=== PATIENT | female | born 1935 | race Asian ===

== ENCOUNTER 2016-08-20 11:58 | Emergency (ER) | payer MEDICARE ==
[~2016-08-20] VITALS: Wt 65.0 kg
[2016-08-20] MEDS ORDERED: ACETAMINOPHEN 500 MG TAB PO STA (15:06)
--- NOTE | 2016-08-20 16:07 | RADRPT ---
PROCEDURE: XR Chest 1 view. CLINICAL INDICATION: Cough TECHNIQUE: PA views of the chest were obtained. COMPARISON: None. FINDINGS: The heart is large. Calcified atherosclerosis is noted in the aorta. Scattered subsegmental atelect asis is noted in the bilateral lower lobes. No consolidations are identified. No pneumothorax is se en. Osseous structures are intact. IMPRESSION: Cardiomegaly with calcified atherosclerosis in the aorta. Scattered subsegmental atelectasis in the bilateral lower lobes. RPTAT: AA .Ant Villafuerte MD, MD Date Time Electronically viewed and signed by .Ant Villafuerte MD, on 08/20/2016 16:07 .P/
[2016-08-20] MEDS ORDERED: OSLT75C PO (16:12)
[2016-08-20] MEDS ORDERED: ACET500C5 PO (16:12)
--- NOTE | 2016-08-20 16:15 | ERD ---
ER Documentation Chief Complaint Date/Time DATE: 08/20/16 TIME: 16:14 Chief Complaint COUGH X 2 DAYS HPI This 80-year-old female presents with cough since yesterday. She has body aches and low-grade fever triage as well. She denies hemoptysis, mucus, vomiting, abdominal pain. She denies headache or chest pain. ROS All systems reviewed and are negative except as per history of present illness. Medications Home Meds Active Scripts Oseltamivir Phosphate* (Tamiflu*) 75 Mg Capsule, 75 MG PO BID for 5 Days, CAP Prov:MARY SHEARER MD 08/20/16 Acetaminophen* (Tylophen*) 500 Mg Capsule, 1 CAP PO Q6H Y for PAIN AND OR ELEVATED TEMP, #15 CAP Prov:MARY SHEARER MD 08/20/16 PMhx/Soc Medical and Surgical Hx: pt denies Medical Hx, pt denies Surgical Hx Hx Alcohol Use: No Hx Substance Use: No Hx Tobacco Use: No Smoking Status: Never smoker Physical Exam Vitals Vital Signs Date Time Temp Pulse Resp B/P Pulse Ox O2 Delivery O2 Flow Rate FiO2 08/20/16 12:10 100.1 79 18 169/72 99 Physical Exam Const: [] Alert, not ill-appearing, speak complete sentences per Head: Atraumatic Eyes: Normal Conjunctiva ENT: Normal External Ears, Nose and Mouth. TMs and oropharynx normal Neck: Full range of motion..~ No meningismus. Resp: Clear to auscultation bilaterally. Noticeable dry cough. Cardio: Regular rate and rhythm, no murmurs Abd: Soft, non tender, non distended. Normal bowel sounds Skin: No petechiae or rashes Back: No midline or flank tenderness Ext: No cyanosis, or edema Neur: Awake and alert Psych: Normal Mood and Affect Results 24 hrs Current Medications Medications (Trade) Dose Ordered Sig/Mayte Route PRN Reason Start Time Stop Time Status Last Admin Dose Admin Acetaminophen (Tylenol Tab) 500 mg ONCE STAT PO 08/20/16 15:06 08/20/16 15:07 DC 08/20/16 15:13 Procedures/MDM Patient was given Tylenol by mouth. Chest X-ray 1V Interpreted by me: Soft Tissue: No acute abnormalities Bones: No acute abnormalities Mediastinum/Cardiac Silhouette/Lungs: [No acute abnormalities]. Impression- normal 1 view chest x-ray Patient has signs or symptoms of acute URI and low-grade fever for 1 day. She will be treated empirically for influenza. There is no signs of pneumonia, respiratory distress, or sepsis currently. She will be treated with Tamiflu and Tylenol and further observation. Patient should return for shortness of breath, worsening fevers, difficulty breathing, vomiting, new worsening symptoms or primary care doctor this week Departure Diagnosis: Primary Impression: Cough Additional Impression: Hypertension Hypertension type: essential hypertension Qualified Code: I10 - Essential hypertension Condition: Stable Patient Instructions: Uri, Viral, No Abx (Adult) Additional Instructions: X-ray read as normal. We will treat for possible influenza. Recheck for new or worsening symptoms or with primary care doctor for further evaluation and recheck blood pressure MARY SHEARER MD Aug 20, 2016 16:15
[2016-08-20 16:28] VITALS: BP 181/88; PULSE 71; RESP 17; TEMP 98.3
== END 2016-08-20 16:31 | disposition home or self-care (01) ==
LOC: FTE 11:58
DX: R05 Cough (principal); I10 Essential (primary) hypertension
CPT/HCPCS: 71010

== ENCOUNTER 2016-11-09 10:59 | Inpatient (IN) | payer MEDICARE, OTHER ==
[~2016-11-09] VITALS: Ht 152.4 cm; Wt 54.2 kg
[~2016-11-09 10:59] MED LIST: ACET500C5 PO; OSLT75C PO
[2016-11-09 12:17] LABS: ADD SCAN DIFF NO
[2016-11-09 12:22] LABS: BASOPHILS % 0.3 % (0.0-2.0); EOSINOPHILS # 0.1 10^3/ul (0.0-0.5); EOSINOPHILS % 1.5 % (0.0-7.0); HEMATOCRIT 27.6 % (37.0-47.0); LYMPHOCYTES # 3.1 10^3/ul (0.8-2.9); LYMPHOCYTES % 36.1 % (15.0-51.0); MEAN CORPUSCULAR HEMOGLOBIN 26.5 pg (29.0-33.0); MEAN CORPUSCULAR HGB CONC 32.6 g/dl (32.0-37.0); MEAN CORPUSCULAR VOLUME 81.4 fl (82.0-101.0); MEAN PLATELET VOLUME 9.4 fl (7.4-10.4); MONOCYTE # 0.7 10^3/ul (0.3-0.9); MONOCYTES % 8.6 % (0.0-11.0); NEUTROPHIL # 4.6 10^3/ul (1.6-7.5); NEUTROPHILS % 53.3 % (39.0-77.0); PLATELET COUNT 317 10^3/UL (140-415); RED BLOOD COUNT 3.39 10^6/ul (4.20-5.40); RED CELL DISTRIBUTION WIDTH 15.9 % (11.5-14.5); WHITE BLOOD COUNT 8.6 10^3/ul (4.8-10.8)
--- NOTE | 2016-11-09 12:33 | RADRPT ---
AMENDMENT: 11/09/2016 12:48:24 PM Harley Echeverria M.D A call report was made to Dr. STARK at 11/09/2016 12:48:20 PM. PROCEDURE: CT Brain without contrast. CLINICAL INDICATION: Neurologic deficit TECHNIQUE: A CT of the brain was performed on multidetector high-resolution CT scanner utilizing a xial sections from the skull base through the vertex without contrast. One or more of the following dose reduction techniques were used: Automated exposure control, Adjustment of the mA and/or kV acc ording to patient size, and/or use of iterative reconstruction technique. DOSE: CTDI = 45 mGy and the DLP = 720 mGy-cm. COMPARISON: None available FINDINGS: No acute intracranial hemorrhage, significant mass effect or midline shift. Patchy hypoattenuation o f the cerebral white matter is compatible with mild chronic microvascular ischemic changes. Vascular calcifications. Prominence of the cortical sulci and ventricles are related to mild cerebral volum e loss. No significant opacification of the visualized paranasal sinuses or mastoids. IMPRESSION: No acute intracranial findings. Mild chronic microvascular disease and intracranial atherosclerosis. RPTAT: AA .Harley Echeverria MD, MD Date Time Electronically viewed and signed by .Harley Echeverria MD, MD on 11/09/2016 12:48 .T/
[2016-11-09 12:41] LABS: INR 0.98
[2016-11-09 12:42] LABS: PARTIAL THROMBOPLASTIN TIME 25.5 Sec (25.0-35.0)
[2016-11-09 12:44] LABS: ALANINE AMINOTRANSFERASE 33 IU/L (13-69); ALBUMIN/GLOBULIN RATIO 0.95; ALKALINE PHOSPHATASE 36 IU/L (42-121); ANION GAP 21 (8-16); ASPARTATE AMINO TRANSFERASE 25 IU/L (15-46); BILIRUBIN,INDIRECT 0.6 mg/dl (0-1.1); BILIRUBIN,TOTAL 0.6 mg/dl (0.2-1.3); BLOOD UREA NITROGEN 29 mg/dl (7-20); CALCIUM 9.2 mg/dl (8.4-10.2); CARBON DIOXIDE 24 mmol/L (21-31); CHLORIDE 102 mmol/L (97-110); GLUCOSE 130 mg/dl (70-220); POTASSIUM 4.7 mmol/L (3.5-5.1); SODIUM 142 mmol/L (135-144); TOTAL PROTEIN 8.2 g/dl (6.1-8.1)
--- NOTE | 2016-11-09 12:52 | RADRPT ---
PROCEDURE: XR Chest. CLINICAL INDICATION: Possible sepsis. TECHNIQUE: Single frontal view of the chest was obtained. COMPARISON: Chest x-ray 08/20/2016. FINDINGS: The soft tissues are normal. There are degenerative osteophytes in the thoracic spine. The heart i s enlarged. The cardiomediastinal silhouette and hilar structures are normal. The pulmonary vascula ture is normal. There are vascular calcifications in the thoracic aorta. There is a suboptimal and spray upper with increased density in the bases of the lungs suspicious for compressive atelectasis. The costophrenic angles are normal. IMPRESSION: 1. Cardiomegaly with atherosclerosis and ectasia of the left-sided thoracic aorta. 2. Suboptimal inspiration with compressive atelectasis in the bases of the lungs. 3. No significant changes noted as compared to 08/20/2016. RPTAT:AAJJ Physician Tamara Date Time Electronically viewed and signed by Physician Tamara on 11/09/2016 12:51 JAISON/
[2016-11-09 12:56] LABS: TROPONIN-I < 0.012 ng/ml (0.00-0.12)
[2016-11-09] MEDS ORDERED: MEGE800O PO (12:58)
[2016-11-09] MEDS ORDERED: CIPR500T4 PO (12:58)
[2016-11-09] MEDS ORDERED: CLON-379 PO (12:59)
[2016-11-09] MEDS ORDERED: ZOLP5TAB PO (12:59)
[2016-11-09] MEDS ORDERED: SITA1TAB5 PO (13:00)
[2016-11-09 13:02] LABS: ADD UMIC YES; URINE BILIRUBIN (Dip) NEGATIVE (NEGATIVE); URINE BLOOD (Dip) NEGATIVE (NEGATIVE); URINE COLOR AMBER (YELLOW); URINE KETONES (Dip) TRACE (NEGATIVE); URINE LEUKOCYTE ESTERASE (Dip) NEGATIVE (NEGATIVE); URINE NITRITE (Dip) POSITIVE (NEGATIVE); URINE TOTAL PROTEIN (Dip) 4+ (NEGATIVE); URINE UROBILINOGEN (Dip) 4.0 E.U./dL (0.1-1.0)
[2016-11-09] MEDS ORDERED: CLOP75TA27 PO (13:08)
[2016-11-09] MEDS ORDERED: ASPI81TA3 PO (13:08)
[2016-11-09] MEDS ORDERED: CETI10CA PO (13:09)
[2016-11-09] MEDS ORDERED: PHEN-538 PO (13:09)
[2016-11-09] MEDS ORDERED: ROPI0.25 PO (13:09)
[2016-11-09] MEDS ORDERED: OLOP2.5D LEFT EYE (13:10)
[2016-11-09] MEDS ORDERED: PANTOPRAZOLE 40 MG INJ IV ONE (14:00)
--- NOTE | 2016-11-09 14:13 | ERA ---
ER Documentation Chief Complaint Date/Time DATE: 11/09/16 TIME: 1155 Chief Complaint HEADACHE AND DIZZINESS FOR THE PAST 2 DAYS.UNABLE TO WALK, NO NEUO DEF HPI 81-year-old female presents the emergency department complaining of weakness and dizziness. Patient speaks mostly tight. Her family is providing most of the history via translation. Over the last 2 days, patient has been having increasing generalized weakness and a nonspecific headache. The headache is not acute in onset or thunderclap in nature. It is associated with a generalized but not focal weakness. The generalized weakness has become so bad that the patient cannot walk. Patient's been unable to care for herself at home at this time with a significant weakness. ROS All systems reviewed and are negative except as per history of present illness. Medications Home Meds Reported Medications Olopatadine* (Pataday*) 0.2% - 2.5 Ml Drops, 1 DROP LEFT EYE DAILY, EA 11/09/16 Phenazopyridine Hcl* (Pyridium*) 200 Mg Tab, 200 MG PO TID, TAB 11/09/16 Ropinirole Hcl* (Ropinirole Hcl*) 0.25 Mg Tablet, 0.25 MG PO HS, TAB 11/09/16 Cetirizine Hcl* (Zyrtec*) 10 Mg Capsule, 10 MG PO DAILY, TAB 11/09/16 Clopidogrel Bisulfate (Clopidogrel) 75 Mg Tablet, 75 MG PO DAILY, #30 TAB 11/09/16 Aspirin* (Aspirin* Chew) 81 Mg Tab.chew, 81 MG PO DAILY, TAB.CHEW 11/09/16 Sitagliptin Phos/Metformin HCl (Janumet 50-1,000 mg Tablet) 1 Each Tablet, 1 EACH PO BID, TAB 11/09/16 Clonidine Hcl* (Clonidine Hcl*) 0.1 Mg Tab, 0.1 MG PO Q6 Y for ELEVATED BLOOD PRESSURE, TAB 11/09/16 Zolpidem Tartrate* (Ambien*) 5 Mg Tablet, 5 MG PO QHS Y for INSOMNIA, #30 TAB 11/09/16 Ciprofloxacin Hcl* (Ciprofloxacin Hcl*) 500 Mg Tablet, 500 MG PO BID, #14 TAB 11/09/16 Megestrol Acetate* (Megestrol Acetate*) 800 Mg/20 Ml Oral.susp, 800 MG PO DAILY , ML 11/09/16 Discontinued Scripts Oseltamivir Phosphate* (Tamiflu*) 75 Mg Capsule, 75 MG PO BID for 5 Days, CAP Prov:MARY SHEARER MD 08/20/16 Acetaminophen* (Tylophen*) 500 Mg Capsule, 1 CAP PO Q6H Y for PAIN AND OR ELEVATED TEMP, #15 CAP Prov:MARY SHEARER MD 08/20/16 Allergies Allergies: Coded Allergies: No Known Allergy (Unverified , 11/09/16) PMhx/Soc History of Surgery: No Anesthesia Reaction: No Hx Neurological Disorder: No Hx Respiratory Disorders: No Hx Cardiac Disorders: Yes (HTN , HIGH CHOLESTEROL , HEART MURMUR ) Hx Psychiatric Problems: No Hx Miscellaneous Medical Probl: Yes (DM ) Hx Alcohol Use: No Hx Substance Use: No Hx Tobacco Use: No Smoking Status: Never smoker FmHx Noncontributory for chief complaint Physical Exam Vitals Vital Signs Date Time Temp Pulse Resp B/P Pulse Ox O2 Delivery O2 Flow Rate FiO2 11/09/16 13:40 98.1 56 18 139/56 100 Nasal Cannula 2.0 11/09/16 12:14 64 18 109/50 99 Nasal Cannula 2.0 11/09/16 12:08 Nasal Cannula 2 11/09/16 11:01 98.5 69 20 126/56 98 Physical Exam GENERAL: Patient is a frail elderly female who appears weak but in no acute distress HEENT: Pupils equal, round, and reactive to light. EOMI. There is no scleral icterus. NECK: C-spine is soft and supple, there is no meningismus. There is no cervical lymphadenopathy. LUNGS: Clear to auscultation bilaterally. There are no rales, wheezes or rhonchi. HEART: Regular rate and rhythm, no murmurs, clicks, rubs or gallops. ABDOMEN: Soft, non-tender, non-distended. There are bowel sounds in all four quadrants. No rebound or guarding. EXTREMITIES: There is no peripheral cyanosis or edema. No focal swelling or erythema. NEURO: The patient moves all four extremities with 5/5 strength. Cranial nerves II - XII are intact. Normal gait. Alert and oriented SKIN: There is no apparent rash or petechiae. Skin appears pale HEME/LYMPHATIC: There is no evidence of excessive bruising or lymphedema. PSYCHIATRIC: The patient does not appear anxious or depressed. Result Diagram: 5/27/17 1200 11/09/16 1200 Results 24 hrs Laboratory Tests Test 11/09/16 12:00 11/09/16 12:03 11/09/16 12:40 White Blood Count 8.610^3/ul Red Blood Count 3.3910^6/ul Hemoglobin 9.0g/dl Hematocrit 27.6% Mean Corpuscular Volume 81.4fl Mean Corpuscular Hemoglobin 26.5pg Mean Corpuscular Hemoglobin Concent 32.6g/dl Red Cell Distribution Width 15.9% Platelet Count 91425^3/UL Mean Platelet Volume 9.4fl Neutrophils % 53.3% Lymphocytes % 36.1% Monocytes % 8.6% Eosinophils % 1.5% Basophils % 0.3% Nucleated Red Blood Cells % 0.0/100WBC Neutrophils # 4.610^3/ul Lymphocytes # 3.110^3/ul Monocytes # 0.710^3/ul Eosinophils # 0.110^3/ul Basophils # 0.010^3/ul Nucleated Red Blood Cells # 0.010^3/ul Prothrombin Time 13.0Sec Prothrombin Time Ratio 1.0 INR International Normalized Ratio 0.98 Activated Partial Thromboplast Time 25.5Sec Sodium Level 142mmol/L Potassium Level 4.7mmol/L Chloride Level 102mmol/L Carbon Dioxide Level 24mmol/L Anion Gap 21 Blood Urea Nitrogen 29mg/dl Creatinine 1.60mg/dl Glucose Level 130mg/dl Lactic Acid Level 3.0mmol/L Calcium Level 9.2mg/dl Total Bilirubin 0.6mg/dl Direct Bilirubin 0.00mg/dl Indirect Bilirubin 0.6mg/dl Aspartate Amino Transf (AST/SGOT) 25IU/L Alanine Aminotransferase (ALT/SGPT) 33IU/L Alkaline Phosphatase 36IU/L Troponin I < 0.012ng/ml Total Protein 8.2g/dl Albumin 4.0g/dl Globulin 4.20g/dl Albumin/Globulin Ratio 0.95 Bedside Glucose 140mg/dL Urine Color CLAUDIA Urine Clarity CLEAR Urine pH 7.0 Urine Specific [place] 1.010 Urine Ketones TRACE Urine Nitrite POSITIVE Urine Bilirubin NEGATIVE Urine Urobilinogen 4.0 E.U./dL Urine Leukocyte Esterase NEGATIVE Urine Microscopic RBC 2-5/HPF Urine Microscopic WBC 2-5/HPF Urine Epithelial Cells FEW Urine Hemoglobin NEGATIVE Urine Glucose 0.1%% Urine Total Protein 4+ Current Medications Medications (Trade) Dose Ordered Sig/Mayte Route PRN Reason Start Time Stop Time Status Last Admin Dose Admin Pantoprazole (Protonix Iv) 40 mg ONCE ONCE IV 11/09/16 14:00 11/09/16 14:04 DC 11/09/16 13:46 Procedures/MDM Patient was taken to a room, seen and evaluated. Comfort measures were initiated. Diagnostic tests were ordered and reviewed. 3 LEAD RHYTHM STRIP: Normal sinus rhythm without ectopy EK lead EKG reviewed by myself: Normal Sinus Rhythm Right bundle branch block No ST elevation, depression, or T wave inversion Impression: Nonspecific EKG RADIOLOGY: reviewed with the radiologist CONSULTATION: hospitalist was notified for admission REEVALUATION: Patient is remained hemodynamically stable MEDICAL DECISION MAKIN-year-old female presents with generalized weakness. Differential diagnosis entertained was broad and potential high acuity. Patient's evaluation demonstrates evidence of a significant anemia of uncertain etiology. She is on aspirin and Plavix and I have a high concern of possible occult GI bleed. I have covered her with Protonix. Patient does not require emergent transfusion at this time but will require admission for further observation and consideration of endoscopy. Stool for blood is been ordered and is pending. Patient's weakness may also be related to medications that she is on a number of medications that can cause weakness. At this time, patient shows no evidence of stroke either on CT scan or clinical examination. Patient' s elevated lactate has been noted although my suspicion is that this is likely from the blood loss and anemia. I have no obvious source of infection at this time and as the patient is afebrile, I doubt very much she is septic. I have sent cultures and these are pending at this time as well. Patient will be admitted for further observation management and care. Departure Diagnosis: Primary Impression: Anemia Condition: MARII Giraldo November 09, 2016 14:13
[2016-11-09 15:38] LABS: BARBITURATES Negative (NEGATIVE); BENZODIAZEPINES Negative (NEGATIVE); CANNABINOIDS Negative (NEGATIVE); COCAINE Negative (NEGATIVE); OPIATES Negative (NEGATIVE)
[2016-11-09 16:04] VITALS: TEMP 98.2
[2016-11-09 16:30] VITALS: BP 198/84; RESP 18
[2016-11-09] MEDS ORDERED: ONDANSETRON 4 MG INJ IV PRN (17:00)
[2016-11-09] MEDS ORDERED: NACL 0.9% 3 ML SYG IV SCH (17:00)
[2016-11-09] MEDS ORDERED: ALBUTEROL/IPRATROPIUM (NEB) 3 ML AMP HHN PRN (17:00)
[2016-11-09] MEDS ORDERED: MAGNESIUM HYDROXIDE 30ML CUP PO PRN (17:00)
[2016-11-09] MEDS ORDERED: GLUCOSE GEL 15 GRAM TUBE BUCCAL PRN (17:00)
[2016-11-09] MEDS ORDERED: LORAZEPAM 2 MG INJ IV PRN (17:00)
[2016-11-09] MEDS: INSULIN ASPART [NOVOLOG] 3 ML PEN SC SCH ×2 (17:00→20:53)
[2016-11-09] MEDS ORDERED: NA PHOSPHATE/BIPHOS 133 ML ENEMA PR PRN (17:00)
[2016-11-09] MEDS ORDERED: DEXTROSE 50% 50 ML SYRINGE IV PRN ×2 (17:00)
[2016-11-09] MEDS ORDERED: GLUCOSE GEL 15 GRAM TUBE PO PRN ×2 (17:00)
[2016-11-09] MEDS ORDERED: GLUCAGON 1 MG INJ IM PRN (17:00)
[2016-11-09] MEDS ORDERED: NITROGLYCERIN (SL) 0.4 MG TAB SL PRN (17:00)
[2016-11-09] MEDS ORDERED: morphine 2 MG INJ IV PRN (17:00)
[2016-11-09 17:58] VITALS: BP 169/71; PULSE 55; RESP 16
[2016-11-09 18:13] LABS: INR 1.02; PROTIME 13.4 Sec (12.2-14.2)
[2016-11-09] MEDS: SOD CHLORIDE 0.9% 1,000 ML IV SCH (18:15)
[2016-11-09 18:18] LABS: PARTIAL THROMBOPLASTIN TIME 27.5 Sec (25.0-35.0)
[2016-11-09] MEDS: hydrALAzine 20 MG INJ IV PRN (18:23)
--- NOTE | 2016-11-09 19:08 | HP ---
DATE OF ADMISSION: 11/09/2016 CHIEF COMPLAINT: Headache, dizziness, weakness x2 days. HISTORY OF PRESENT ILLNESS: An 81-year-old female with past medical history based on records of hyp ertension, high cholesterol, heart murmur, possible stent placement, type 2 diabetes who has been cervantes ving headache and dizziness for the past 2 days. She also had decreased ambulation as well. The pa colette is Arabic speaking. Most of the information was obtained from the ER documentation, as the uma arreguin is presently not able to provide a full HPI. She also had a nonspecific headache over the last 2 days. A full review of systems could not be obtained at this time. When the patient came in today , she had an elevated lactic acid of 3.0 and her creatinine was 1.6, although we do not know her bas krystina. Also the patient had a hemoglobin of 9.1, although no signs of any upper or lower GI bleedin g. PAST MEDICAL HISTORY: As stated above. ALLERGIES: NO KNOWN DRUG ALLERGIES. MEDICATIONS AT HOME: 1. Zyrtec 10 mg daily. 2. Ciprofloxacin 500 mg p.o. b.i.d. 4. Megace 800 mg daily. 4. Plavix 75 mg daily. 5. Clonidine 0.1 mg p.o. q.6h p.r.n. 6. Aspirin 81 mg daily. 7. Ropinirole 0.25 mg at bedtime. 8. Ambien 5 mg p.o. at bedtime p.r.n. 9. Pataday 1 drop left eye daily. 10. Janumet b.i.d. 11. Pyridium 200 mg t.i.d. SOCIAL HISTORY: Negative for smoking, drinking, or IV drug abuse. FAMILY HISTORY: Noncontributory today. PAST SURGICAL HISTORY: Unknown. The patient may have had a "stent" placed but it is unclear what k ind of stent the patient has had, whether that is a cardiac stent or other kind of vascular stent. We need to get more information on that. PHYSICAL EXAMINATION: VITAL SIGNS: T-max 98.5, pulse of 56 to 69, respirations 18 to 20, blood pressure 109 to 139 systol ic over 50 to 56 diastolic, saturating at 100% on 2 liters nasal cannula. GENERAL: The patient is lying in bed, somewhat frail, but otherwise in no acute distress. HEENT: Pupils equal, round, react to light. Extraocular muscles intact. NECK: Supple, no thyromegaly. LUNGS: Clear to auscultation bilaterally. CARDIOVASCULAR: S1, S2 heard. No rubs or gallops. ABDOMEN: Soft, nontender, nondistended. Normal bowel sounds. No rebound or guarding. MUSCULOSKELETAL: No lower extremity edema bilaterally. NEUROLOGIC: No focal deficits. LABORATORIES: WBC 8.6, hemoglobin 9.0, hematocrit 27.6, platelets 317. Sodium is 142, potassium 4. 7, chloride 102, CO2 24, BUN 29, creatinine 1.6, glucose 130. Lactic acid 3.0. LFTs are essentiall y normal. Troponin negative x1. Coags are normal. The patient had a head CT, shows no acute intra cranial findings. There was a chest x-ray performed, shows cardiomegaly with atherosclerosis and ec triston of the left side of the thoracic aorta. No significant changes compared to 08/20/2016. Subop timal inspiration with compressive atelectasis at the base of the lungs. ASSESSMENT AND PLAN: An 81-year-old female with headache, weakness and dizziness for 2 days with sig ns of mild anemia, lactic acidosis and renal failure. 1. Lactic acidosis. Again, lactic acid is 3. The patient has unclear source of possible infection . Possible source could be the UTIs. Her nitrites are positive. Her leukocyte esterase was negati ve. In any event, we will put her on IV fluids, check TSH, A1c, lipid panel. Tylenol p.r.n. pain a nd fevers. We will put her on antibiotics for now and follow up final culture results. Given the l actic acidosis from the lactic acid, IV fluids and check blood cultures as well. Again, no leukocyt osis at this time. 2. Mild anemia. Will check a stool occult test. Hemoglobin was 9.1. Will hold her aspirin and Pl avix for now, although there are no signs of any upper or lower GI bleeding at this time. 3. Renal insufficiency. We will put her on IV fluids. Monitor ins and outs and BUN and creatinine levels daily and get a renal consult as well. 4. History of hypertension. Again, he is on hydralazine p.r.n. Monitor for now. 5. High cholesterol. Check a lipid panel. Continue to monitor for now. 6. History of heart murmur get a 2D echocardiogram as well. 7. Type 2 diabetes. Put on sliding scale insulin. Check A1c. Also get PT and OT consult and spee ch therapy consult as well. 8. Gastrointestinal prophylaxis. PPI. 9. Deep venous thrombosis prophylaxis, sequential compression devices. Dictated By: VASU GARDUNO/KIRSTEN Conf#: [id number] DID#: [id number]
[2016-11-09 19:37] VITALS: BP 164/70; PULSE 64
[2016-11-09] MEDS: CEFTRIAXONE 2 GM/50 ML (PMX) 50 ML IVPB SCH (19:38)
[2016-11-09] MEDS: ACETAMINOPHEN 325 MG TAB PO PRN (19:41)
[2016-11-09 20:06] VITALS: BP 159/73; RESP 17
[2016-11-09] MEDS: OLOPATADINE 0.1% 5 ML OPH LEFT EYE SCH (20:55)
--- NOTE | 2016-11-09 23:20 | CONS ---
Date/Time of Note Date/Time of Note DATE: 11/09/16 TIME: 23:18 Assessment/Plan Assessment/Plan Chief Complaint/Hosp Course [id number] renal A/P EMPERATRIZ DM HTN UND CKD ANEMIA PLAN LYTES IV FLUID KID Problems: Consultation Date/Type/Reason Admit Date/Time November 09, 2016 at 15:53 Initial Consult Date Type of Consultation: renal 24 HR Interval Summary Constitutional: No chills, No diaphoresis Exam/Review of Systems Vital Signs Vitals Vital Signs Date Time Temp Pulse Resp B/P Pulse Ox O2 Delivery O2 Flow Rate FiO2 11/09/16 20:06 98.3 61 17 159/73 97 11/09/16 20:05 Nasal Cannula 2.0 11/09/16 20:03 21 Exam Neck: supple Respiratory: clear to auscultation Cardiovascular: regular rate and rhythm Gastrointestinal: bowel sounds, soft Musculoskeletal: nl extremities to inspection Extremities: normal pulses, No edema Neurological: REGULATORY ATTORNEY II-XII intact, nl mental status, nl speech Skin: nl turgor Results Result Diagram: 11/09/16 1200 11/09/16 1200 Results 24 hrs Laboratory Tests Test 11/09/16 12:00 11/09/16 12:03 11/09/16 12:40 11/09/16 12:41 White Blood Count 8.6 Red Blood Count 3.39 L Hemoglobin 9.0 L Hematocrit 27.6 L Mean Corpuscular Volume 81.4 L Mean Corpuscular Hemoglobin 26.5 L Mean Corpuscular Hemoglobin Concent 32.6 Red Cell Distribution Width 15.9 H Platelet Count 317 Mean Platelet Volume 9.4 Neutrophils % 53.3 Lymphocytes % 36.1 Monocytes % 8.6 Eosinophils % 1.5 Basophils % 0.3 Nucleated Red Blood Cells % 0.0 Neutrophils # 4.6 Lymphocytes # 3.1 H Monocytes # 0.7 Eosinophils # 0.1 Basophils # 0.0 Nucleated Red Blood Cells # 0.0 Prothrombin Time 13.0 Prothrombin Time Ratio 1.0 INR International Normalized Ratio 0.98 Activated Partial Thromboplast Time 25.5 Sodium Level 142 Potassium Level 4.7 Chloride Level 102 Carbon Dioxide Level 24 Anion Gap 21 H Blood Urea Nitrogen 29 H Creatinine 1.60 H Glucose Level 130 Hemoglobin A1c 6.4 H Lactic Acid Level 3.0 H Calcium Level 9.2 Total Bilirubin 0.6 Direct Bilirubin 0.00 Indirect Bilirubin 0.6 Aspartate Amino Transf (AST/SGOT) 25 Alanine Aminotransferase (ALT/SGPT) 33 Alkaline Phosphatase 36 L Troponin I < 0.012 Total Protein 8.2 H Albumin 4.0 Globulin 4.20 H Albumin/Globulin Ratio 0.95 Bedside Glucose 140 Urine Color CLAUDIA Urine Clarity CLEAR Urine pH 7.0 Urine Specific [place] 1.010 Urine Ketones TRACE H Urine Nitrite POSITIVE H Urine Bilirubin NEGATIVE Urine Urobilinogen 4.0 E.U./dL H Urine Leukocyte Esterase NEGATIVE Urine Microscopic RBC 2-5 Urine Microscopic WBC 2-5 Urine Epithelial Cells FEW Urine Hemoglobin NEGATIVE Urine Glucose 0.1% H Urine Total Protein 4+ H Urine Opiates Screen Negative Urine Barbiturates Negative Urine Amphetamines Screen Negative Urine Benzodiazepines Screen Negative Urine Cocaine Screen Negative Urine Cannabinoids Negative Test 11/09/16 17:20 11/09/16 18:18 11/09/16 18:50 11/09/16 20:48 Prothrombin Time 13.4 Prothrombin Time Ratio 1.0 INR International Normalized Ratio 1.02 Activated Partial Thromboplast Time 27.5 Free Thyroxine 1.24 Bedside Glucose 131 141 Lactic Acid Level 1.4 Medications Medications Current Medications Ondansetron HCl (Zofran Inj) 4 mg Q6H PRN IV NAUSEA AND/OR VOMITING; Start at 17:00 Acetaminophen (Tylenol Tab) 650 mg Q6H PRN PO PAIN LEVEL 1-3 OR FEVER Last administered on 11/09/16t 19:41; Admin Dose 650 MG; Start 11/09/16 at 17:00 Acetaminophen/ Hydrocodone Bitart ([place] (5/325)) 1 tab Q6H PRN PO MODERATE PAIN LEVEL 4-6; Start 11/09/16 at 17:00 Morphine Sulfate (morphine) 2 mg Q4H PRN IV SEVERE PAIN LEVEL 7-10; Start 11/09 at 17:00 Docusate Sodium (Colace) 100 mg Q12H PRN PO CONSTIPATION; Start 11/09/16 at 17: 00 Magnesium Hydroxide (Milk Of Mag) 30 ml DAILY PRN PO CONSTIPATION; Start at 17:00 Sodium Biphosphate/ Sodium Phosphate (Fleet Enema) 133 ml DAILY PRN [place] CONSTIPATION; Start 11/09/16 at 17:00 Pantoprazole (Protonix Iv) 40 mg DAILY@06 IV ; Start 11/10/16 at 06:00 Lorazepam 0.5 mg 0.5 mg Q6H PRN IV ANXIETY; Start 11/09/16 at 17:00 Sodium Chloride (NS) 1,000 ml @ 100 mls/hr Q10H IV Last administered on 18:15; Admin Dose 100 MLS/HR; Start 11/09/16 at 16:35 Hydralazine HCl (Apresoline) 10 mg Q6H PRN IV SBP GREATER THAN 180 Last administered on 11/09/16 18:23; Admin Dose 10 MG; Start 11/09/16 at 17:00 Nitroglycerin (Nitroglycerin (Sl Tab) 0.4 Mg) 1 tab Q5M PRN SL ANGINA; Start at 17:00 Insulin Aspart (Novolog Insulin Pen) NOVOLOG *MILD* ALGORI... Q4 SC Last administered on 11/09/16 20:53; Admin Dose 1 UNIT; Start 11/09/16 at 17:00 Megestrol Acetate (Megace Susp) 800 mg DAILY PO ; Start 11/10/16 at 09:00 Miscellaneous Information 1 ea NOTE XX ; Start 11/09/16 at 17:00 Glucose (Glutose) 15 gm Q15M PRN PO DECREASED GLUCOSE; Start 11/09/16 at 17:00 Glucose (Glutose) 22.5 gm Q15M PRN PO DECREASED GLUCOSE; Start 11/09/16 at 17: 00 Dextrose (D50w Syringe) 25 ml Q15M PRN IV DECREASED GLUCOSE; Start 11/09/16 at 17:00 Dextrose (D50w Syringe) 50 ml Q15M PRN IV DECREASED GLUCOSE; Start 11/09/16 at 17:00 Glucagon (Glucagen) 1 mg Q15M PRN IM DECREASED GLUCOSE; Start 11/09/16 at 17:00 Glucose (Glutose) 15 gm Q15M PRN BUCCAL DECREASED GLUCOSE; Start 11/09/16 at 17 :00 Loratadine (Claritin) 10 mg DAILY PO ; Start 11/10/16 at 09:00 Olopatadine HCl 1 drop 1 drop BID LEFT EYE Last administered on 11/09/16 20:55 ; Admin Dose 1 DROP; Start 11/09/16 at 21:00 Ceftriaxone Sodium (Rocephin) 50 ml @ 100 mls/hr Q24H IVPB Last administered on 11/09/16t 19:38; Admin Dose 100 MLS/HR; Start 11/09/16 at 20:00 TEE MENDOZA MD November 09, 2016 23:20
[2016-11-10] VITALS (7 sets, daily range): BP systolic 157–222; BP diastolic 70–100; PULSE 71–88; RESP 18–20
[2016-11-10] MEDS: INSULIN ASPART [NOVOLOG] 3 ML PEN SC SCH ×6 (00:19→20:27)
[2016-11-10] MEDS: hydrALAzine 20 MG INJ IV PRN ×2 (00:35→20:21)
[2016-11-10 02:31] LABS: ADD UMIC YES; URINE BLOOD (Dip) NEGATIVE (NEGATIVE); URINE COLOR AMBER (YELLOW); URINE KETONES (Dip) NEGATIVE (NEGATIVE); URINE LEUKOCYTE ESTERASE (Dip) NEGATIVE (NEGATIVE); URINE NITRITE (Dip) POSITIVE (NEGATIVE); URINE TOTAL PROTEIN (Dip) 4+ (NEGATIVE); URINE UROBILINOGEN (Dip) 4.0 E.U./dL (0.1-1.0)
[2016-11-10 02:36] LABS: URINE BILIRUBIN (Dip) NEGATIVE (NEGATIVE)
[2016-11-10 02:42] LABS: BACTERIA,URINE FEW; SQUAMOUS EPITHELIAL CELL,UR FEW; URINE RBCS NONE SEEN /HPF (0)
[2016-11-10 02:48] LABS: PROTEIN/CREAT RATIO 2.19 RATIO
[2016-11-10] MEDS: SOD CHLORIDE 0.9% 1,000 ML IV SCH ×3 (03:20→22:35)
[2016-11-10] MEDS: ACETAMINOPHEN 325 MG TAB PO PRN ×2 (03:26→09:35)
--- NOTE | 2016-11-10 05:03 | CONS ---
DATE OF ADMISSION: 11/09/2016 DATE OF CONSULTATION: 11/09/2016 TYPE OF CONSULTATION: Nephrology Thank you, Dr. Sanots, for kindly asking me to see this patient in nephrology consultation. HISTORY OF PRESENT ILLNESS: The patient is an 81-year-old female with past medical history of hyper tension, history of CAD, and diabetes mellitus who presented to this hospital complaining of weaknes s, headache, and dizziness, noted to have electrolyte imbalance, and nephrology consultation is requ ested. The patient in the ER was complaining of weakness and dizziness. The patient denies any tomi sea, vomiting, or any diarrhea. Her laboratory data shows hematocrit 27.6. The patient has a BUN o f 29, creatinine 1.6, sodium 142, potassium 4.7. Lactic acid 3. Hemoglobin A1c 6.4. Alkaline phos phatase 36. CT of the brain shows no acute intracranial finding, mild chronic microvascular disease , and intracranial atherosclerosis. The patient also had a chest x-ray that shows cardiomegaly, ath erosclerosis, and ectasia of the left-sided thoracic aorta. Suboptimal inspiration with compressive atelectatic changes. PAST MEDICAL HISTORY: Diabetes, hypertension, dyslipidemia, CAD. MEDICATION HISTORY: The patient's medication at home include 1. Aspirin. 2. Zyrtec. 3. Cipro. 4. Clonidine. 5. Plavix. 6. Megace. 7. Pataday eyedrops. 8. Pyridium. 9. Requip. 10. Metformin. 11. Januvia. REVIEW OF SYSTEMS: HEENT: Unremarkable. RESPIRATORY: Unremarkable. ABDOMEN: No nausea, vomiting, or tenderness. EXTREMITIES: Denies any swelling. NEUROLOGIC: Unremarkable. GENITOURINARY: No dysuria, hematuria, or flank pain at this point. Also denies any history of NSAI D abuse. PHYSICAL EXAMINATION: VITAL SIGNS: Pulse 64, blood pressure 164/70. HEAD: Atraumatic, normocephalic. Pupils are equal, reactive to light. No pallor or conjunctival i cterus. NECK: Supple. There is no JVD. LUNGS: Clear. CARDIOVASCULAR: S1, S2 are normal. ABDOMEN: Soft. Bowel sounds present. No palpable mass or hepatosplenomegaly. EXTREMITIES: No cyanosis, clubbing, or edema. CENTRAL NERVOUS SYSTEM: The patient is awake, alert, moving both upper and lower extremities. No d eficit. LABORATORY DATA: Sodium 142, potassium 4.7, BUN 29, creatinine 1.60. The patient's hematocrit 27.6 . ____ ____ ____. Urine nitrites positive. CT brain negative. IMPRESSION: 1. The patient has acute kidney injury with possible underlying chronic kidney disease. 2. Rule out underlying prerenal azotemia. 3. The patient has hypertension. 4. The patient has possible underlying chronic kidney disease due to hypertensive nephrosclerosis a nd diabetic nephropathy. 5. Anemia, possibly anemia of chronic kidney disease. 6. History of coronary artery disease. 7. History of dyslipidemia. PLAN: At this point is to obtain urine sodium osmolality, urine creatinine, eosinophil, urine sodiu m, urine protein creatinine ratio. Ultrasound of the kidney will be obtained. The patient will be given gentle IV fluids to reverse any component of prerenal azotemia and dehydration. Further recom mendations will be made when above data is available. Thank you, Dr. Santos, for kindly asking me to see this patient in nephrology consultation. Dictated By: TEE MATTHEWS/NTS Conf#: [id number] DID#: [id number]
[2016-11-10] MEDS: PANTOPRAZOLE 40 MG INJ IV SCH (05:12)
[2016-11-10 05:33] LABS: ADD SCAN DIFF NO
[2016-11-10 05:53] LABS: BASOPHILS % 0.2 % (0.0-2.0); EOSINOPHILS # 0.1 10^3/ul (0.0-0.5); EOSINOPHILS % 0.7 % (0.0-7.0); HEMOGLOBIN 7.7 g/dl (12.0-16.0); LYMPHOCYTES # 3.2 10^3/ul (0.8-2.9); LYMPHOCYTES % 34.7 % (15.0-51.0); MEAN CORPUSCULAR HEMOGLOBIN 25.5 pg (29.0-33.0); MEAN CORPUSCULAR HGB CONC 32.1 g/dl (32.0-37.0); MEAN CORPUSCULAR VOLUME 79.5 fl (82.0-101.0); MEAN PLATELET VOLUME 9.5 fl (7.4-10.4); MONOCYTE # 0.7 10^3/ul (0.3-0.9); MONOCYTES % 7.5 % (0.0-11.0); NEUTROPHIL # 5.2 10^3/ul (1.6-7.5); NEUTROPHILS % 56.5 % (39.0-77.0); PLATELET COUNT 275 10^3/UL (140-415); RED BLOOD COUNT 3.02 10^6/ul (4.20-5.40); RED CELL DISTRIBUTION WIDTH 15.7 % (11.5-14.5); WHITE BLOOD COUNT 9.2 10^3/ul (4.8-10.8)
[2016-11-10 06:12] LABS: CALCIUM 8.2 mg/dl (8.4-10.2); CHOL/HDL RATIO 3.8 RATIO; CREATININE 1.7 mg/dl (0.44-1.00); MAGNESIUM 1.9 mg/dl (1.7-2.5); PHOSPHORUS 4.7 mg/dl (2.5-4.9); POTASSIUM 4.6 mmol/L (3.5-5.1)
[2016-11-10 06:41] LABS: THYROID STIMULATING HORMONE 0.878 MIU/L (0.465-4.680)
[2016-11-10] MEDS ORDERED: NON-FORMULARY/PATIENT OWN MED (Cetirizine Hcl* (Zyrtec*) 10 MG) PO SCH (09:00)
[2016-11-10] MEDS ORDERED: OLOPATADINE LEFT EYE SCH (09:00)
[2016-11-10] MEDS: OLOPATADINE 0.1% 5 ML OPH LEFT EYE SCH ×2 (09:36→20:27)
[2016-11-10] MEDS: LORATADINE 10 MG TAB PO SCH (09:36)
[2016-11-10] MEDS: MEGESTROL (40 MG/ML) 10ML CUP PO SCH (09:36)
--- NOTE | 2016-11-10 11:05 | RADRPT ---
PROCEDURE: US Renal CLINICAL INDICATION: Acute renal insufficiency TECHNIQUE: Multiple sonographic images of the kidneys and bladder were obtained. Evaluation of th e kidneys and bladder was performed as well with toure scale and color and Doppler evaluation using a curved array transducer. The images were reviewed on a high-resolution PACS workstation. COMPARISON: No prior studies are available for comparison. FINDINGS: The right kidney measures 11.5 x 5.1 x 4.5 cm. The left kidney measures 9.7 x 4.1 x 3.5 cm. There is normal echogenicity within the parenchyma of the kidneys bilaterally. Multiple small echogenic foci are seen in the left kidney ranging up to 0.3 cm in diameter consisten t with nonobstructing calculi. There is no evidence of hydronephrosis. No perinephric fluid collection is seen. Evaluation of the urinary bladder is unremarkable. IMPRESSION: 1. Echogenic, nonobstructing calculi in the left kidney. RPTAT: [facility] Physician Mariel Date Time Electronically viewed and signed by Physician Mariel on 11/10/2016 11:05 EMILIANA/
--- NOTE | 2016-11-10 11:48 | PN ---
Date/Time of Note Date/Time of Note DATE: 11/10/16 TIME: 11:45 Assessment/Plan VTE Prophylaxis VTE Prophylaxis Intervention: SCD's Lines/Catheters IV Catheter Type (from [facility]): Peripheral IV Assessment/Plan Chief Complaint/Hosp Course ASSESSMENT AND PLAN: 81-year-old female with headache, weakness and dizziness for 2 days with signs of mild anemia, lactic acidosis and renal failure. 1. Lactic acidosis - unclear source- was 3 on admission, now down to nL range. The patient has unclear source of possible infection. Possible source could be the UTIs. Her nitrites are positive - continue IV fluids, Tylenol p.r.n. pain and fevers. - antibiotics for now and follow up final culture results. 2. Mild anemia - f/u stool occult test. Hemoglobin was 9.1. holding her aspirin and Plavix for now, although there are no signs of any upper or lower GI bleeding at this time. 3. Renal insufficiency - appreciate renal consult - continue IV fluids. - Monitor ins and outs and BUN and creatinine levels daily - f/u renal rec's 4. History of hypertension. Again, he is on hydralazine p.r.n. Monitor for now. 5. High cholesterol. Check a lipid panel. Continue to monitor for now. 6. History of heart murmur - f/u 2D echocardiogram as well. 7. Type 2 diabetes A1c = 6.4 - sliding scale insulin. PT and OT consult and speech therapy consult as well. 8. Gastrointestinal prophylaxis. PPI. 9. Deep venous thrombosis prophylaxis, sequential compression devices. Problems: Subjective 24 Hr Interval Summary Free Text/Dictation No acute events overnight, seen by renal team. Exam/Review of Systems Vital Signs Vitals Vital Signs Date Time Temp Pulse Resp B/P Pulse Ox O2 Delivery O2 Flow Rate FiO2 11/10/16 08:00 Nasal Cannula 2.0 11/10/16 07:34 98.8 63 20 168/72 95 11/10/16 01:56 21 Intake and Output 11/09/16 11/09/16 11/10/16 15:00 23:00 07:00 Intake Total 2200 ml Output Total 850 ml Balance 1350 ml Exam GENERAL: The patient is lying in bed, somewhat frail, but otherwise in no acute distress. HEENT: Pupils equal, round, react to light. Extraocular muscles intact. NECK: Supple, no thyromegaly. LUNGS: Clear to auscultation bilaterally. CARDIOVASCULAR: S1, S2 heard. No rubs or gallops. ABDOMEN: Soft, nontender, nondistended. Normal bowel sounds. No rebound or guarding. MUSCULOSKELETAL: No lower extremity edema bilaterally. NEUROLOGIC: No focal deficits. Results Result Diagram: 11/10/16 0430 11/10/16 0425 Results 24 hrs Laboratory Tests Test 11/09/16 12:00 11/09/16 12:03 11/09/16 12:40 11/09/16 12:41 White Blood Count 8.6 Red Blood Count 3.39 L Hemoglobin 9.0 L Hematocrit 27.6 L Mean Corpuscular Volume 81.4 L Mean Corpuscular Hemoglobin 26.5 L Mean Corpuscular Hemoglobin Concent 32.6 Red Cell Distribution Width 15.9 H Platelet Count 317 Mean Platelet Volume 9.4 Neutrophils % 53.3 Lymphocytes % 36.1 Monocytes % 8.6 Eosinophils % 1.5 Basophils % 0.3 Nucleated Red Blood Cells % 0.0 Neutrophils # 4.6 Lymphocytes # 3.1 H Monocytes # 0.7 Eosinophils # 0.1 Basophils # 0.0 Nucleated Red Blood Cells # 0.0 Prothrombin Time 13.0 Prothrombin Time Ratio 1.0 INR International Normalized Ratio 0.98 Activated Partial Thromboplast Time 25.5 Sodium Level 142 Potassium Level 4.7 Chloride Level 102 Carbon Dioxide Level 24 Anion Gap 21 H Blood Urea Nitrogen 29 H Creatinine 1.60 H Glucose Level 130 Hemoglobin A1c 6.4 H Lactic Acid Level 3.0 H Calcium Level 9.2 Total Bilirubin 0.6 Direct Bilirubin 0.00 Indirect Bilirubin 0.6 Aspartate Amino Transf (AST/SGOT) 25 Alanine Aminotransferase (ALT/SGPT) 33 Alkaline Phosphatase 36 L Troponin I < 0.012 Total Protein 8.2 H Albumin 4.0 Globulin 4.20 H Albumin/Globulin Ratio 0.95 Bedside Glucose 140 Urine Color CLAUDIA Urine Clarity CLEAR Urine pH 7.0 Urine Specific Lutz 1.010 Urine Ketones TRACE H Urine Nitrite POSITIVE H Urine Bilirubin NEGATIVE Urine Urobilinogen 4.0 E.U./dL H Urine Leukocyte Esterase NEGATIVE Urine Microscopic RBC 2-5 Urine Microscopic WBC 2-5 Urine Epithelial Cells FEW Urine Hemoglobin NEGATIVE Urine Glucose 0.1% H Urine Total Protein 4+ H Urine Opiates Screen Negative Urine Barbiturates Negative Urine Amphetamines Screen Negative Urine Benzodiazepines Screen Negative Urine Cocaine Screen Negative Urine Cannabinoids Negative Test 11/09/16 17:20 11/09/16 18:18 11/09/16 18:50 11/09/16 20:48 Prothrombin Time 13.4 Prothrombin Time Ratio 1.0 INR International Normalized Ratio 1.02 Activated Partial Thromboplast Time 27.5 Free Thyroxine 1.24 Bedside Glucose 131 141 Lactic Acid Level 1.4 Test 11/10/16 00:17 11/10/16 01:08 11/10/16 03:20 11/10/16 04:25 Bedside Glucose 134 Lactic Acid Level 1.1 1.0 Sodium Level 142 Potassium Level 4.6 Chloride Level 107 Carbon Dioxide Level 24 Anion Gap 16 Blood Urea Nitrogen 31 H Creatinine 1.70 H Glucose Level 107 Calcium Level 8.2 L Phosphorus Level 4.7 Magnesium Level 1.9 Triglycerides Level 108 Cholesterol Level 124 LDL Cholesterol, Calculated 70 HDL Cholesterol 32 L Cholesterol/HDL Ratio 3.8 Thyroid Stimulating Hormone (TSH) 0.878 Test 11/10/16 04:30 11/10/16 05:11 11/10/16 08:50 White Blood Count 9.2 Red Blood Count 3.02 L Hemoglobin 7.7 L Hematocrit 24.0 L Mean Corpuscular Volume 79.5 L Mean Corpuscular Hemoglobin 25.5 L Mean Corpuscular Hemoglobin Concent 32.1 Red Cell Distribution Width 15.7 H Platelet Count 275 Mean Platelet Volume 9.5 Neutrophils % 56.5 Lymphocytes % 34.7 Monocytes % 7.5 Eosinophils % 0.7 Basophils % 0.2 Nucleated Red Blood Cells % 0.0 Neutrophils # 5.2 Lymphocytes # 3.2 H Monocytes # 0.7 Eosinophils # 0.1 Basophils # 0.0 Nucleated Red Blood Cells # 0.0 Hemoglobin A1c 6.4 H Bedside Glucose 108 104 Medications Medications Current Medications Ondansetron HCl (Zofran Inj) 4 mg Q6H PRN IV NAUSEA AND/OR VOMITING; Start at 17:00 Acetaminophen (Tylenol Tab) 650 mg Q6H PRN PO PAIN LEVEL 1-3 OR FEVER Last administered on 11/10/16t 09:35; Admin Dose 650 MG; Start 11/09/16 at 17:00 Acetaminophen/ Hydrocodone Bitart ([place] (5/325)) 1 tab Q6H PRN PO MODERATE PAIN LEVEL 4-6; Start 11/09/16 at 17:00 Morphine Sulfate (morphine) 2 mg Q4H PRN IV SEVERE PAIN LEVEL 7-10; Start 11/09 at 17:00 Docusate Sodium (Colace) 100 mg Q12H PRN PO CONSTIPATION; Start 11/09/16 at 17: 00 Magnesium Hydroxide (Milk Of Mag) 30 ml DAILY PRN PO CONSTIPATION; Start at 17:00 Sodium Biphosphate/ Sodium Phosphate (Fleet Enema) 133 ml DAILY PRN [place] CONSTIPATION; Start 11/09/16 at 17:00 Pantoprazole (Protonix Iv) 40 mg DAILY@06 IV Last administered on 11/10/16 05: 12; Admin Dose 40 MG; Start 11/10/16 at 06:00 Lorazepam 0.5 mg 0.5 mg Q6H PRN IV ANXIETY; Start 11/09/16 at 17:00 Sodium Chloride (NS) 1,000 ml @ 100 mls/hr Q10H IV Last administered on 03:20; Admin Dose 100 MLS/HR; Start 11/09/16 at 16:35 Hydralazine HCl (Apresoline) 10 mg Q6H PRN IV SBP GREATER THAN 180 Last administered on 11/10/16 00:35; Admin Dose 10 MG; Start 11/09/16 at 17:00 Nitroglycerin (Nitroglycerin (Sl Tab) 0.4 Mg) 1 tab Q5M PRN SL ANGINA; Start at 17:00 Insulin Aspart (Novolog Insulin Pen) NOVOLOG *MILD* ALGORI... Q4 SC Last administered on 11/09/16 20:53; Admin Dose 1 UNIT; Start 11/09/16 at 17:00 Megestrol Acetate (Megace Susp) 800 mg DAILY PO Last administered on 11/10/16 09:36; Admin Dose 800 MG; Start 11/10/16 at 09:00 Miscellaneous Information 1 ea NOTE XX ; Start 11/09/16 at 17:00 Glucose (Glutose) 15 gm Q15M PRN PO DECREASED GLUCOSE; Start 11/09/16 at 17:00 Glucose (Glutose) 22.5 gm Q15M PRN PO DECREASED GLUCOSE; Start 11/09/16 at 17: 00 Dextrose (D50w Syringe) 25 ml Q15M PRN IV DECREASED GLUCOSE; Start 11/09/16 at 17:00 Dextrose (D50w Syringe) 50 ml Q15M PRN IV DECREASED GLUCOSE; Start 11/09/16 at 17:00 Glucagon (Glucagen) 1 mg Q15M PRN IM DECREASED GLUCOSE; Start 11/09/16 at 17:00 Glucose (Glutose) 15 gm Q15M PRN BUCCAL DECREASED GLUCOSE; Start 11/09/16 at 17 :00 Loratadine (Claritin) 10 mg DAILY PO Last administered on 11/10/16 09:36; Admin Dose 10 MG; Start 11/10/16 at 09:00 Olopatadine HCl 1 drop 1 drop BID LEFT EYE Last administered on 11/10/16 09:36 ; Admin Dose 1 DROP; Start 11/09/16 at 21:00 Ceftriaxone Sodium (Rocephin) 50 ml @ 100 mls/hr Q24H IVPB Last administered on 11/09/16 19:38; Admin Dose 100 MLS/HR; Start 11/09/16 at 20:00 VASU MORENO November 10, 2016 11:48
[2016-11-10] MEDS: HYDROCODONE/APAP (5/325) TAB PO PRN ×2 (12:49→23:29)
--- NOTE | 2016-11-10 16:28 | CONS ---
Date/Time of Note Date/Time of Note DATE: 11/10/16 TIME: 16:27 Assessment/Plan Assessment/Plan Chief Complaint/Hosp Course RENAL A/P EMPERATRIZ DM HTN UND CKD ANEMIA PLAN LYTES IV FLUID US KID Problems: Consultation Date/Type/Reason Admit Date/Time November 09, 2016 at 15:53 Type of Consultation: renal 24 HR Interval Summary Constitutional: no complaints Exam/Review of Systems Vital Signs Vitals Vital Signs Date Time Temp Pulse Resp B/P Pulse Ox O2 Delivery O2 Flow Rate FiO2 11/10/16 15:14 21 11/10/16 08:00 Nasal Cannula 2.0 11/10/16 07:34 98.8 63 20 168/72 95 Intake and Output 11/09/16 11/09/16 11/10/16 15:00 23:00 07:00 Intake Total 2200 ml Output Total 850 ml Balance 1350 ml Exam Neck: supple Respiratory: clear to auscultation Cardiovascular: regular rate and rhythm Gastrointestinal: bowel sounds (+), soft Results Result Diagram: 11/10/16 0430 11/10/16 0425 Results 24 hrs Laboratory Tests Test 11/09/16 17:20 11/09/16 18:18 11/09/16 18:50 11/09/16 20:48 Prothrombin Time 13.4 Prothrombin Time Ratio 1.0 INR International Normalized Ratio 1.02 Activated Partial Thromboplast Time 27.5 Free Thyroxine 1.24 Bedside Glucose 131 141 Lactic Acid Level 1.4 Test 11/10/16 00:17 11/10/16 01:08 11/10/16 03:20 11/10/16 04:25 Bedside Glucose 134 Lactic Acid Level 1.1 1.0 Sodium Level 142 Potassium Level 4.6 Chloride Level 107 Carbon Dioxide Level 24 Anion Gap 16 Blood Urea Nitrogen 31 H Creatinine 1.70 H Glucose Level 107 Calcium Level 8.2 L Phosphorus Level 4.7 Magnesium Level 1.9 Triglycerides Level 108 Cholesterol Level 124 LDL Cholesterol, Calculated 70 HDL Cholesterol 32 L Cholesterol/HDL Ratio 3.8 Thyroid Stimulating Hormone (TSH) 0.878 Test 11/10/16 04:30 11/10/16 05:11 11/10/16 08:50 11/10/16 12:00 White Blood Count 9.2 Red Blood Count 3.02 L Hemoglobin 7.7 L Hematocrit 24.0 L Mean Corpuscular Volume 79.5 L Mean Corpuscular Hemoglobin 25.5 L Mean Corpuscular Hemoglobin Concent 32.1 Red Cell Distribution Width 15.7 H Platelet Count 275 Mean Platelet Volume 9.5 Neutrophils % 56.5 Lymphocytes % 34.7 Monocytes % 7.5 Eosinophils % 0.7 Basophils % 0.2 Nucleated Red Blood Cells % 0.0 Neutrophils # 5.2 Lymphocytes # 3.2 H Monocytes # 0.7 Eosinophils # 0.1 Basophils # 0.0 Nucleated Red Blood Cells # 0.0 Hemoglobin A1c 6.4 H Bedside Glucose 108 104 Lactic Acid Level 0.9 Test 11/10/16 12:45 Bedside Glucose 117 Medications Medications Current Medications Ondansetron HCl (Zofran Inj) 4 mg Q6H PRN IV NAUSEA AND/OR VOMITING; Start at 17:00 Acetaminophen (Tylenol Tab) 650 mg Q6H PRN PO PAIN LEVEL 1-3 OR FEVER Last administered on 11/10/16 09:35; Admin Dose 650 MG; Start 11/09/16 at 17:00 Acetaminophen/ Hydrocodone Bitart ([place] (5/325)) 1 tab Q6H PRN PO MODERATE PAIN LEVEL 4-6 Last administered on 11/10/16 12:49; Admin Dose 1 TAB; Start at 17:00 Morphine Sulfate (morphine) 2 mg Q4H PRN IV SEVERE PAIN LEVEL 7-10; Start 11/09 at 17:00 Docusate Sodium (Colace) 100 mg Q12H PRN PO CONSTIPATION; Start 11/09/16 at 17: 00 Magnesium Hydroxide (Milk Of Mag) 30 ml DAILY PRN PO CONSTIPATION; Start at 17:00 Sodium Biphosphate/ Sodium Phosphate (Fleet Enema) 133 ml DAILY PRN [place] CONSTIPATION; Start 11/09/16 at 17:00 Pantoprazole (Protonix Iv) 40 mg DAILY@06 IV Last administered on 11/10/16 05: 12; Admin Dose 40 MG; Start 11/10/16 at 06:00 Lorazepam 0.5 mg 0.5 mg Q6H PRN IV ANXIETY; Start 11/09/16 at 17:00 Sodium Chloride (NS) 1,000 ml @ 100 mls/hr Q10H IV Last administered on 12:50; Admin Dose 100 MLS/HR; Start 11/09/16 at 16:35 Hydralazine HCl (Apresoline) 10 mg Q6H PRN IV SBP GREATER THAN 180 Last administered on 11/10/16 00:35; Admin Dose 10 MG; Start 11/09/16 at 17:00 Nitroglycerin (Nitroglycerin (Sl Tab) 0.4 Mg) 1 tab Q5M PRN SL ANGINA; Start at 17:00 Insulin Aspart (Novolog Insulin Pen) NOVOLOG *MILD* ALGORI... Q4 SC Last administered on 11/09/16 20:53; Admin Dose 1 UNIT; Start 11/09/16 at 17:00 Megestrol Acetate (Megace Susp) 800 mg DAILY PO Last administered on 11/10/16 09:36; Admin Dose 800 MG; Start 11/10/16 at 09:00 Miscellaneous Information 1 ea NOTE XX ; Start 11/09/16 at 17:00 Glucose (Glutose) 15 gm Q15M PRN PO DECREASED GLUCOSE; Start 11/09/16 at 17:00 Glucose (Glutose) 22.5 gm Q15M PRN PO DECREASED GLUCOSE; Start 11/09/16 at 17: 00 Dextrose (D50w Syringe) 25 ml Q15M PRN IV DECREASED GLUCOSE; Start 11/09/16 at 17:00 Dextrose (D50w Syringe) 50 ml Q15M PRN IV DECREASED GLUCOSE; Start 11/09/16 at 17:00 Glucagon (Glucagen) 1 mg Q15M PRN IM DECREASED GLUCOSE; Start 11/09/16 at 17:00 Glucose (Glutose) 15 gm Q15M PRN BUCCAL DECREASED GLUCOSE; Start 11/09/16 at 17 :00 Loratadine (Claritin) 10 mg DAILY PO Last administered on 11/10/16 09:36; Admin Dose 10 MG; Start 11/10/16 at 09:00 Olopatadine HCl 1 drop 1 drop BID LEFT EYE Last administered on 11/10/16 09:36 ; Admin Dose 1 DROP; Start 11/09/16 at 21:00 Ceftriaxone Sodium (Rocephin) 50 ml @ 100 mls/hr Q24H IVPB Last administered on 11/09/16 19:38; Admin Dose 100 MLS/HR; Start 11/09/16 at 20:00 TEE MENDOZA MD November 10, 2016 16:28
[2016-11-10] MEDS: CEFTRIAXONE 2 GM/50 ML (PMX) 50 ML IVPB SCH (20:27)
[2016-11-10] MEDS: METOPROLOL 25 MG TAB PO SCH (22:49)
[2016-11-11] VITALS (11 sets, daily range): BP systolic 165–201; BP diastolic 62–88; PULSE 58–79; RESP 16–20
[2016-11-11] MEDS: ACCUCHECK AT 2AM (Patients on SS coverage) XX SCH (02:00)
[2016-11-11] MEDS: PANTOPRAZOLE 40 MG INJ IV SCH (04:43)
[2016-11-11] MEDS: hydrALAzine 20 MG INJ IV PRN ×2 (04:43→11:30)
[2016-11-11] MEDS: DOCUSATE SODIUM 100 MG CAP PO PRN (04:43)
[2016-11-11 05:23] LABS: ADD SCAN DIFF NO
[2016-11-11 05:29] LABS: BASOPHILS % 0.4 % (0.0-2.0); EOSINOPHILS # 0.2 10^3/ul (0.0-0.5); EOSINOPHILS % 1.9 % (0.0-7.0); HEMOGLOBIN 8.1 g/dl (12.0-16.0); LYMPHOCYTES % 38.7 % (15.0-51.0); MEAN CORPUSCULAR HGB CONC 32.4 g/dl (32.0-37.0); MEAN CORPUSCULAR VOLUME 80.4 fl (82.0-101.0); MEAN PLATELET VOLUME 9.3 fl (7.4-10.4); MONOCYTE # 0.6 10^3/ul (0.3-0.9); MONOCYTES % 8.3 % (0.0-11.0); NEUTROPHIL # 3.9 10^3/ul (1.6-7.5); NEUTROPHILS % 50.6 % (39.0-77.0); PLATELET COUNT 311 10^3/UL (140-415); RED BLOOD COUNT 3.11 10^6/ul (4.20-5.40); RED CELL DISTRIBUTION WIDTH 15.9 % (11.5-14.5); WHITE BLOOD COUNT 7.7 10^3/ul (4.8-10.8)
[2016-11-11 05:49] LABS: CALCIUM 8.1 mg/dl (8.4-10.2); CREATININE 1.44 mg/dl (0.44-1.00)
[2016-11-11] MEDS: Insulin NOVOLOG SS MILD Algorithm (SS with meals and bedtime) SC SCH ×4 (07:20→20:23)
[2016-11-11] MEDS ORDERED: INSULIN ASPART [NOVOLOG] 3 ML PEN SC SCH (07:20)
[2016-11-11] MEDS: OLOPATADINE 0.1% 5 ML OPH LEFT EYE SCH ×2 (08:17→20:21)
[2016-11-11] MEDS: LORATADINE 10 MG TAB PO SCH (08:17)
[2016-11-11] MEDS: MEGESTROL (40 MG/ML) 10ML CUP PO SCH (08:17)
[2016-11-11] MEDS: METOPROLOL 25 MG TAB PO SCH (08:18)
[2016-11-11] MEDS: AMLODIPINE 10 MG TAB PO SCH (08:18)
[2016-11-11] MEDS: SOD CHLORIDE 0.9% 1,000 ML IV SCH ×2 (08:35→18:35)
[2016-11-11] MEDS ORDERED: METOPROLOL 25 MG TAB PO ONE (14:00)
--- NOTE | 2016-11-11 14:13 | CONS ---
Date/Time of Note Date/Time of Note DATE: 11/11/16 TIME: 14:11 Assessment/Plan Assessment/Plan Chief Complaint/Hosp Course 1. EMPERATRIZ 2. DM type II 3. MAlignant HTN 4. CKD 5. ANEMIA Problems: Additional Assessment/Plan 1. Kidney function optimization Consultation Date/Type/Reason Admit Date/Time November 09, 2016 at 15:53 Initial Consult Date 11/08/2016 Type of Consultation: renal Reason for Consultation Dr Manzano Exam/Review of Systems Vital Signs Vitals Vital Signs Date Time Temp Pulse Resp B/P Pulse Ox O2 Delivery O2 Flow Rate FiO2 11/11/16 14:07 76 20 165/70 Room Air 11/11/16 12:27 96 11/11/16 08:15 98.2 11/10/16 20:53 2.0 11/10/16 15:14 21 Intake and Output 11/10/16 11/10/16 11/11/16 15:00 23:00 07:00 Intake Total 950 ml 730 ml 1050 ml Output Total 1000 ml 1200 ml Balance 950 ml -270 ml -150 ml Exam Constitutional: alert, oriented ENMT: nl external ears & nose Neck: supple Respiratory: clear to auscultation Cardiovascular: regular rate and rhythm Results Result Diagram: 11/11/16 0440 11/11/16 0440 Results 24 hrs Laboratory Tests Test 11/10/16 17:48 11/10/16 18:15 11/10/16 20:26 11/11/16 04:40 Bedside Glucose 102 112 Lactic Acid Level 1.0 White Blood Count 7.7 Red Blood Count 3.11 L Hemoglobin 8.1 L Hematocrit 25.0 L Mean Corpuscular Volume 80.4 L Mean Corpuscular Hemoglobin 26.0 L Mean Corpuscular Hemoglobin Concent 32.4 Red Cell Distribution Width 15.9 H Platelet Count 311 Mean Platelet Volume 9.3 Neutrophils % 50.6 Lymphocytes % 38.7 Monocytes % 8.3 Eosinophils % 1.9 Basophils % 0.4 Nucleated Red Blood Cells % 0.0 Neutrophils # 3.9 Lymphocytes # 3.0 H Monocytes # 0.6 Eosinophils # 0.2 Basophils # 0.0 Nucleated Red Blood Cells # 0.0 Sodium Level 143 Potassium Level 4.0 Chloride Level 111 H Carbon Dioxide Level 22 Anion Gap 14 Blood Urea Nitrogen 25 H Creatinine 1.44 H Glucose Level 93 Calcium Level 8.1 L Test 11/11/16 08:16 11/11/16 11:27 Bedside Glucose 94 129 Medications Medications Current Medications Ondansetron HCl (Zofran Inj) 4 mg Q6H PRN IV NAUSEA AND/OR VOMITING; Start at 17:00 Acetaminophen (Tylenol Tab) 650 mg Q6H PRN PO PAIN LEVEL 1-3 OR FEVER Last administered on 11/10/16 09:35; Admin Dose 650 MG; Start 11/09/16 at 17:00 Acetaminophen/ Hydrocodone Bitart ([place] (5/325)) 1 tab Q6H PRN PO MODERATE PAIN LEVEL 4-6 Last administered on 11/10/16 23:29; Admin Dose 1 TAB; Start at 17:00 Morphine Sulfate (morphine) 2 mg Q4H PRN IV SEVERE PAIN LEVEL 7-10; Start 11/09 at 17:00 Docusate Sodium (Colace) 100 mg Q12H PRN PO CONSTIPATION Last administered on 04:43; Admin Dose 100 MG; Start 11/09/16 at 17:00 Magnesium Hydroxide (Milk Of Mag) 30 ml DAILY PRN PO CONSTIPATION; Start at 17:00 Sodium Biphosphate/ Sodium Phosphate (Fleet Enema) 133 ml DAILY PRN [place] CONSTIPATION; Start 11/09/16 at 17:00 Pantoprazole (Protonix Iv) 40 mg DAILY@06 IV Last administered on 11/11/16 04: 43; Admin Dose 40 MG; Start 11/10/16 at 06:00 Lorazepam 0.5 mg 0.5 mg Q6H PRN IV ANXIETY; Start 11/09/16 at 17:00 Sodium Chloride (NS) 1,000 ml @ 100 mls/hr Q10H IV Last administered on 12:50; Admin Dose 100 MLS/HR; Start 11/09/16 at 16:35 Hydralazine HCl (Apresoline) 10 mg Q6H PRN IV SBP GREATER THAN 180 Last administered on 11/11/16 11:30; Admin Dose 10 MG; Start 11/09/16 at 17:00 Nitroglycerin (Nitroglycerin (Sl Tab) 0.4 Mg) 1 tab Q5M PRN SL ANGINA; Start at 17:00 Megestrol Acetate (Megace Susp) 800 mg DAILY PO Last administered on 11/11/16 08:17; Admin Dose 800 MG; Start 11/10/16 at 09:00 Miscellaneous Information 1 ea NOTE XX ; Start 11/09/16 at 17:00 Glucose (Glutose) 15 gm Q15M PRN PO DECREASED GLUCOSE; Start 11/09/16 at 17:00 Glucose (Glutose) 22.5 gm Q15M PRN PO DECREASED GLUCOSE; Start 11/09/16 at 17: 00 Dextrose (D50w Syringe) 25 ml Q15M PRN IV DECREASED GLUCOSE; Start 11/09/16 at 17:00 Dextrose (D50w Syringe) 50 ml Q15M PRN IV DECREASED GLUCOSE; Start 11/09/16 at 17:00 Glucagon (Glucagen) 1 mg Q15M PRN IM DECREASED GLUCOSE; Start 11/09/16 at 17:00 Glucose (Glutose) 15 gm Q15M PRN BUCCAL DECREASED GLUCOSE; Start 11/09/16 at 17 :00 Loratadine (Claritin) 10 mg DAILY PO Last administered on 11/11/16 08:17; Admin Dose 10 MG; Start 11/10/16 at 09:00 Olopatadine HCl 1 drop 1 drop BID LEFT EYE Last administered on 11/11/16 08:17 ; Admin Dose 1 DROP; Start 11/09/16 at 21:00 Ceftriaxone Sodium (Rocephin) 50 ml @ 100 mls/hr Q24H IVPB Last administered on 11/10/16 20:27; Admin Dose 100 MLS/HR; Start 11/09/16 at 20:00 Diagnostic Test (Pha) (Accu-Chek) 1 ea 02 XX ; Start 11/11/16 at 02:00 Amlodipine Besylate (Norvasc) 10 mg DAILY PO Last administered on 11/11/16 08: 18; Admin Dose 10 MG; Start 11/11/16 at 09:00 Metoprolol Tartrate (Lopressor) 50 mg Q12 PO ; Start 11/11/16 at 21:00 NADEEM LOPEZ November 11, 2016 14:13
[2016-11-11] MEDS: CEFTRIAXONE 2 GM/50 ML (PMX) 50 ML IVPB SCH (20:21)
[2016-11-11] MEDS: METOPROLOL 50 MG TAB PO SCH (20:22)
[2016-11-11] MEDS: HYDROCODONE/APAP (5/325) TAB PO PRN (21:28)
[2016-11-12] MEDS: ACCUCHECK AT 2AM (Patients on SS coverage) XX SCH (02:00)
[2016-11-12] MEDS: SOD CHLORIDE 0.9% 1,000 ML IV SCH (04:35)
[2016-11-12] MEDS: PANTOPRAZOLE (EC) 40 MG TAB PO SCH (05:11)
[2016-11-12 05:15] LABS: ADD SCAN DIFF NO
[2016-11-12 05:19] LABS: BASOPHILS % 0.3 % (0.0-2.0); EOSINOPHILS # 0.2 10^3/ul (0.0-0.5); EOSINOPHILS % 1.9 % (0.0-7.0); HEMATOCRIT 27.3 % (37.0-47.0); HEMOGLOBIN 8.7 g/dl (12.0-16.0); LYMPHOCYTES % 37.9 % (15.0-51.0); MEAN CORPUSCULAR HEMOGLOBIN 25.7 pg (29.0-33.0); MEAN CORPUSCULAR HGB CONC 31.9 g/dl (32.0-37.0); MEAN CORPUSCULAR VOLUME 80.8 fl (82.0-101.0); MEAN PLATELET VOLUME 9.2 fl (7.4-10.4); MONOCYTE # 0.7 10^3/ul (0.3-0.9); MONOCYTES % 8.2 % (0.0-11.0); NEUTROPHILS % 51.3 % (39.0-77.0); PLATELET COUNT 352 10^3/UL (140-415); RED BLOOD COUNT 3.38 10^6/ul (4.20-5.40); RED CELL DISTRIBUTION WIDTH 16.2 % (11.5-14.5); WHITE BLOOD COUNT 7.9 10^3/ul (4.8-10.8)
[2016-11-12 05:42] LABS: POTASSIUM 4.8 mmol/L (3.5-5.1)
[2016-11-12 05:44] LABS: CREATININE 1.55 mg/dl (0.44-1.00)
[2016-11-12 05:45] LABS: CALCIUM 8.9 mg/dl (8.4-10.2)
[2016-11-12 06:16] VITALS: BP 187/77; PULSE 69; RESP 18
[2016-11-12] MEDS: Insulin NOVOLOG SS MILD Algorithm (SS with meals and bedtime) SC SCH ×4 (07:20→20:15)
[2016-11-12] MEDS: AMLODIPINE 10 MG TAB PO SCH (08:32)
[2016-11-12] MEDS: OLOPATADINE 0.1% 5 ML OPH LEFT EYE SCH ×2 (08:33→20:06)
[2016-11-12] MEDS: LORATADINE 10 MG TAB PO SCH (08:33)
[2016-11-12] MEDS: METOPROLOL 50 MG TAB PO SCH ×2 (08:33→21:59)
[2016-11-12] MEDS: MEGESTROL (40 MG/ML) 10ML CUP PO SCH (08:38)
[2016-11-12 08:39] VITALS: BP 135/84; RESP 18
[2016-11-12 13:21] VITALS: BP 164/74; PULSE 62
--- NOTE | 2016-11-12 15:07 | RADRPT ---
Echocardiogram Report Patient Name: OMERO DAMON Gender: Female Date: 1935 Study Date: 10-Nov-2016 Interactive Media Designer: GERTRUDIS Location: I Ref. Physician: VASU MORENO Quality: Adequate Procedures: Transthoracic echocardiogram with complete 2D, M-Mode, and Doppler examination. Indications: Shortness of breath. 2D/M Mode Doppler Measurement Value Normal Ranges Measurement Value Normal Ranges AoR Diam MM 2.9 cm POONAM Vmax 1.0 cm2 LVIDd 2D 4.4 3.5 - 5.6 cm POONAM VTI 1.0 cm2 LVIDs 2D 3.1 2.1 - 4.1 cm AV Mean Jerson 2.0 m/sec LVPWd 2D 1.3 0.6 - 1.1 cm AV Mean PG 17.2 mmHg IVSd 2D 1.4 0.6 - 1.1 cm AV Peak Jerson 2.7 m/sec EDV 2D 87.3 cm3 AV Peak PG 28.3 mmHg ESV 2D 30.2 cm3 AV VTI 72.6 cm LA Dimen 2D 3.6 2.3 - 4.0 cm LVOT Mean Jerson 0.7 m/sec LVOT Diam 2.0 cm LVOT Mean PG 1.9 mmHg LVOT Peak Jerson 0.9 m/sec LVOT Peak PG 2.9 mmHg LVOT VTI 24.8 cm MV E Peak Jerson 0.9 m/sec MV A Peak Jerson 1.5 m/sec MV E/A 0.6 MV Decel Time 336 msec MV Decel [place] 3 MV E/A 0.6 TR Peak Jerson 2.6 m/sec TR Peak PG 27.0 mmHg PV Peak Jerson 1.2 m/sec PV Peak PG 6.0 mmHg RVSP 30.0 mmHg Findings Left Ventricle: Normal left ventricular systolic function. Normal left ventricular cavity size. Mild concentric left ventricular hypertrophy. Ejection fraction is visually estimated at 65 %. Tissue Doppler/Mitral Doppler indices are consistent with impaired relaxation (Stage I diastolic dysfunction). Right Ventricle: Normal right ventricular size. Normal right ventricular systolic function. Left Atrium: The left atrium is normal in size. Right Atrium: The right atrium is normal in size. Mitral Valve: Moderate mitral annular calcification. Trace to mild mitral valve regurgitation. Aortic Valve: Mild to moderate aortic stenosis. Aortic valve Max velocity 2.70 m/sec. Max PG 28.00 mmHg. Mean PG 17.00 mmHg. Aortic cusps appear moderately calcified. Trace aortic valve regurgitation. Tricuspid Valve: Normal appearance of the tricuspid valve. Estimated peak PA systolic pressure 30 mmHg. There is trace tricuspid regurgitation. Pulmonic Valve: Normal pulmonic valve appearance. There is trace pulmonic regurgitation. Pericardium: Normal pericardium with no significant pericardial effusion. Aorta: Normal aortic root. There is mild aortic root calcification. IVC: Normal size and normal respiratory collapse consistent with normal right atrial pressure. Pulmonary Artery: Normal pulmonary artery size. Conclusions 1.Normal left ventricular systolic function. Normal left ventricular cavity size. Mild concentric left ventricular hypertrophy. Ejection fraction is visually estimated at 65 %. Tissue Doppler/Mitral Doppler indices are consistent with impaired relaxation (Stage I diastolic dysfunction). 2.Normal right ventricular size. Normal right ventricular systolic function. 3.The left atrium is normal in size. 4.The right atrium is normal in size. 5.Trace to mild mitral valve regurgitation. 6.Mild to moderate aortic stenosis. Trace aortic valve regurgitation. 7.Estimated peak PA systolic pressure 30 mmHg. There is trace tricuspid regurgitation. 8.There is trace pulmonic regurgitation. 9.Normal pericardium with no significant pericardial effusion. Electronically Signed By: David Elizabeth 12-Nov-2016 15:06:23 -0700 Patient Name: OMERO DAMON Study Date: 10-Nov-2016 [id number]
[2016-11-12] MEDS ORDERED: ZOLPIDEM 5 MG TAB PO PRN (16:00)
--- NOTE | 2016-11-12 16:57 | PN ---
Date/Time of Note Date/Time of Note DATE: 11/12/16 TIME: 16:55 Assessment/Plan VTE Prophylaxis VTE Prophylaxis Intervention: SCD's Lines/Catheters IV [facility]ter Type [facility]from [facility] Urinary Cath still in place: No Assessment/Plan Assessment/Plan 81 yo F with pmhx HTN admitted for dizziness/headache, lactic acidosis, now resolved. Remains hospitalized for elevated BP. Also found to be slightly anemic at admission though hgb stable since. #Lactic acidosis: resolved. pt stable off abx #anemia: await FOBT. resume asa, still holding plavix pt also with sig proteinuria suggesting sig degree of CKD which is likely contributing to her anemia check iron studies, reorder FOBT as does not appear to have been done #renal insufficiency: renal on consult #HTN: increase clonidine #HL: cont home meds #DVT prophx: SCDs Subjective 24 Hr Interval Summary Free Text/Dictation Pt feels slightly better today. States headache has wholly resolved. BP still high at times Exam/Review of Systems Vital Signs Vitals Vital Signs Date Time Temp Pulse Resp B/P Pulse Ox O2 Delivery O2 Flow Rate FiO2 11/12/16 13:21 62 164/74 11/12/16 08:39 98.4 18 97 11/12/16 06:16 Room Air 11/10/16 20:53 2.0 11/10/16 15:14 21 Intake and Output 11/11/16 11/11/16 11/12/16 15:00 23:00 07:00 Intake Total 800 ml 1200 ml Output Total 900 ml 1000 ml Balance -100 ml 200 ml Exam nad, sitting up in bed no mrg lungs clear abd soft no rashes no le edema Results Result Diagram: 11/12/16 0443 11/12/16 0443 Results 24 hrs Laboratory Tests Test 11/11/16 17:43 11/11/16 20:20 11/12/16 04:43 11/12/16 08:34 Bedside Glucose 129 180 122 White Blood Count 7.9 Red Blood Count 3.38 L Hemoglobin 8.7 L Hematocrit 27.3 L Mean Corpuscular Volume 80.8 L Mean Corpuscular Hemoglobin 25.7 L Mean Corpuscular Hemoglobin Concent 31.9 L Red Cell Distribution Width 16.2 H Platelet Count 352 Mean Platelet Volume 9.2 Neutrophils % 51.3 Lymphocytes % 37.9 Monocytes % 8.2 Eosinophils % 1.9 Basophils % 0.3 Nucleated Red Blood Cells % 0.0 Neutrophils # 4.0 Lymphocytes # 3.0 H Monocytes # 0.7 Eosinophils # 0.2 Basophils # 0.0 Nucleated Red Blood Cells # 0.0 Sodium Level 144 Potassium Level 4.8 Chloride Level 115 H Carbon Dioxide Level 24 Anion Gap 10 Blood Urea Nitrogen 26 H Creatinine 1.55 H Glucose Level 144 # Calcium Level 8.9 Test 11/12/16 12:31 Bedside Glucose 185 Medications Medications Current Medications Ondansetron HCl (Zofran Inj) 4 mg Q6H PRN IV NAUSEA AND/OR VOMITING; Start at 17:00 Acetaminophen (Tylenol Tab) 650 mg Q6H PRN PO PAIN LEVEL 1-3 OR FEVER Last administered on 11/10/16 09:35; Admin Dose 650 MG; Start 11/09/16 at 17:00 Acetaminophen/ Hydrocodone Bitart ([place] (5/325)) 1 tab Q6H PRN PO MODERATE PAIN LEVEL 4-6 Last administered on 11/11/16 21:28; Admin Dose 1 TAB; Start at 17:00 Morphine Sulfate (morphine) 2 mg Q4H PRN IV SEVERE PAIN LEVEL 7-10; Start 11/09 at 17:00 Docusate Sodium (Colace) 100 mg Q12H PRN PO CONSTIPATION Last administered on 04:43; Admin Dose 100 MG; Start 11/09/16 at 17:00 Magnesium Hydroxide (Milk Of Mag) 30 ml DAILY PRN PO CONSTIPATION; Start at 17:00 Sodium Biphosphate/ Sodium Phosphate (Fleet Enema) 133 ml DAILY PRN [place] CONSTIPATION; Start 11/09/16 at 17:00 Lorazepam (Ativan) 0.5 mg Q6H PRN IV ANXIETY; Start 11/09/16 at 17:00 Nitroglycerin (Nitroglycerin (Sl Tab) 0.4 Mg) 1 tab Q5M PRN SL ANGINA; Start at 17:00 Megestrol Acetate (Megace Susp) 800 mg DAILY PO Last administered on 11/12/16 08:38; Admin Dose 800 MG; Start 11/10/16 at 09:00 Miscellaneous Information 1 ea NOTE XX ; Start 11/09/16 at 17:00 Glucose (Glutose) 15 gm Q15M PRN PO DECREASED GLUCOSE; Start 11/09/16 at 17:00 Glucose (Glutose) 22.5 gm Q15M PRN PO DECREASED GLUCOSE; Start 11/09/16 at 17: 00 Dextrose (D50w Syringe) 25 ml Q15M PRN IV DECREASED GLUCOSE; Start 11/09/16 at 17:00 Dextrose (D50w Syringe) 50 ml Q15M PRN IV DECREASED GLUCOSE; Start 11/09/16 at 17:00 Glucagon (Glucagen) 1 mg Q15M PRN IM DECREASED GLUCOSE; Start 11/09/16 at 17:00 Glucose (Glutose) 15 gm Q15M PRN BUCCAL DECREASED GLUCOSE; Start 11/09/16 at 17 :00 Loratadine (Claritin) 10 mg DAILY PO Last administered on 11/12/16 08:33; Admin Dose 10 MG; Start 11/10/16 at 09:00 Olopatadine HCl (Patanol 0.1% Oph) 1 drop BID LEFT EYE Last administered on 08:33; Admin Dose 1 DROP; Start 11/09/16 at 21:00 Diagnostic Test (Pha) (Accu-Chek) 1 ea 02 XX ; Start 11/11/16 at 02:00 Amlodipine Besylate (Norvasc) 10 mg DAILY PO Last administered on 11/12/16 08: 32; Admin Dose 10 MG; Start 11/11/16 at 09:00 Metoprolol Tartrate (Lopressor) 50 mg Q12 PO Last administered on 11/12/16 08: 33; Admin Dose 50 MG; Start 11/11/16 at 21:00 Pantoprazole (Protonix Tab) 40 mg DAILY@06 PO Last administered on 11/12/16 05 :11; Admin Dose 40 MG; Start 11/12/16 at 06:00 Aspirin (Aspirin) 81 mg DAILY PO ; Start 11/13/16 at 09:00 Ropinirole HCl (Requip) 0.25 mg HS PO ; Start 11/12/16 at 21:00 Zolpidem Tartrate (Ambien) 5 mg QHS PRN PO INSOMNIA; Start 11/12/16 at 16:00 Clonidine (Catapres) 0.2 mg TID PO ; Start 11/12/16 at 21:00 CHAZ SANCHEZ MD November 12, 2016 16:57
--- NOTE | 2016-11-12 18:40 | CONS ---
Date/Time of Note Date/Time of Note DATE: 11/12/16 TIME: 18:40 Assessment/Plan Assessment/Plan Chief Complaint/Hosp Course RENAL A/P EMPERATRIZ DM HTN UND CKD ANEMIA PLAN LYTES Ibp meds Problems: Consultation Date/Type/Reason Admit Date/Time November 09, 2016 at 15:53 Type of Consultation: renal 24 HR Interval Summary Constitutional: no complaints Exam/Review of Systems Vital Signs Vitals Vital Signs Date Time Temp Pulse Resp B/P Pulse Ox O2 Delivery O2 Flow Rate FiO2 11/12/16 13:21 62 164/74 11/12/16 08:39 98.4 18 97 11/12/16 06:16 Room Air 11/10/16 20:53 2.0 11/10/16 15:14 21 Intake and Output 11/11/16 11/11/16 11/12/16 15:00 23:00 07:00 Intake Total 800 ml 1200 ml Output Total 900 ml 1000 ml Balance -100 ml 200 ml Exam Neck: supple Respiratory: clear to auscultation Cardiovascular: regular rate and rhythm Gastrointestinal: soft Musculoskeletal: nl extremities to inspection Extremities: normal pulses Results Result Diagram: 11/12/16 0443 11/12/16 0443 Results 24 hrs Laboratory Tests Test 11/11/16 20:20 11/12/16 04:43 11/12/16 08:34 11/12/16 12:31 Bedside Glucose 180 122 185 White Blood Count 7.9 Red Blood Count 3.38 L Hemoglobin 8.7 L Hematocrit 27.3 L Mean Corpuscular Volume 80.8 L Mean Corpuscular Hemoglobin 25.7 L Mean Corpuscular Hemoglobin Concent 31.9 L Red Cell Distribution Width 16.2 H Platelet Count 352 Mean Platelet Volume 9.2 Neutrophils % 51.3 Lymphocytes % 37.9 Monocytes % 8.2 Eosinophils % 1.9 Basophils % 0.3 Nucleated Red Blood Cells % 0.0 Neutrophils # 4.0 Lymphocytes # 3.0 H Monocytes # 0.7 Eosinophils # 0.2 Basophils # 0.0 Nucleated Red Blood Cells # 0.0 Sodium Level 144 Potassium Level 4.8 Chloride Level 115 H Carbon Dioxide Level 24 Anion Gap 10 Blood Urea Nitrogen 26 H Creatinine 1.55 H Glucose Level 144 # Calcium Level 8.9 Test 11/12/16 17:27 Bedside Glucose 161 Medications Medications Current Medications Ondansetron HCl (Zofran Inj) 4 mg Q6H PRN IV NAUSEA AND/OR VOMITING; Start at 17:00 Acetaminophen (Tylenol Tab) 650 mg Q6H PRN PO PAIN LEVEL 1-3 OR FEVER Last administered on 11/10/16 09:35; Admin Dose 650 MG; Start 11/09/16 at 17:00 Acetaminophen/ Hydrocodone Bitart ([place] (5/325)) 1 tab Q6H PRN PO MODERATE PAIN LEVEL 4-6 Last administered on 11/11/16 21:28; Admin Dose 1 TAB; Start at 17:00 Morphine Sulfate (morphine) 2 mg Q4H PRN IV SEVERE PAIN LEVEL 7-10; Start 11/09 at 17:00 Docusate Sodium (Colace) 100 mg Q12H PRN PO CONSTIPATION Last administered on 04:43; Admin Dose 100 MG; Start 11/09/16 at 17:00 Magnesium Hydroxide (Milk Of Mag) 30 ml DAILY PRN PO CONSTIPATION; Start at 17:00 Sodium Biphosphate/ Sodium Phosphate (Fleet Enema) 133 ml DAILY PRN [place] CONSTIPATION; Start 11/09/16 at 17:00 Lorazepam (Ativan) 0.5 mg Q6H PRN IV ANXIETY; Start 11/09/16 at 17:00 Nitroglycerin (Nitroglycerin (Sl Tab) 0.4 Mg) 1 tab Q5M PRN SL ANGINA; Start at 17:00 Megestrol Acetate (Megace Susp) 800 mg DAILY PO Last administered on 11/12/16 08:38; Admin Dose 800 MG; Start 11/10/16 at 09:00 Miscellaneous Information 1 ea NOTE XX ; Start 11/09/16 at 17:00 Glucose (Glutose) 15 gm Q15M PRN PO DECREASED GLUCOSE; Start 11/09/16 at 17:00 Glucose (Glutose) 22.5 gm Q15M PRN PO DECREASED GLUCOSE; Start 11/09/16 at 17: 00 Dextrose (D50w Syringe) 25 ml Q15M PRN IV DECREASED GLUCOSE; Start 11/09/16 at 17:00 Dextrose (D50w Syringe) 50 ml Q15M PRN IV DECREASED GLUCOSE; Start 11/09/16 at 17:00 Glucagon (Glucagen) 1 mg Q15M PRN IM DECREASED GLUCOSE; Start 11/09/16 at 17:00 Glucose (Glutose) 15 gm Q15M PRN BUCCAL DECREASED GLUCOSE; Start 11/09/16 at 17 :00 Loratadine (Claritin) 10 mg DAILY PO Last administered on 11/12/16 08:33; Admin Dose 10 MG; Start 11/10/16 at 09:00 Olopatadine HCl (Patanol 0.1% Oph) 1 drop BID LEFT EYE Last administered on 08:33; Admin Dose 1 DROP; Start 11/09/16 at 21:00 Diagnostic Test (Pha) (Accu-Chek) 1 ea 02 XX ; Start 11/11/16 at 02:00 Amlodipine Besylate (Norvasc) 10 mg DAILY PO Last administered on 11/12/16 08: 32; Admin Dose 10 MG; Start 11/11/16 at 09:00 Metoprolol Tartrate (Lopressor) 50 mg Q12 PO Last administered on 11/12/16 08: 33; Admin Dose 50 MG; Start 11/11/16 at 21:00 Pantoprazole (Protonix Tab) 40 mg DAILY@06 PO Last administered on 11/12/16 05 :11; Admin Dose 40 MG; Start 11/12/16 at 06:00 Aspirin (Aspirin) 81 mg DAILY PO ; Start 11/13/16 at 09:00 Ropinirole HCl (Requip) 0.25 mg HS PO ; Start 11/12/16 at 21:00 Zolpidem Tartrate (Ambien) 5 mg QHS PRN PO INSOMNIA; Start 11/12/16 at 16:00 Clonidine (Catapres) 0.2 mg TID PO ; Start 11/12/16 at 21:00 TEE MENDOZA MD November 12, 2016 18:40
[2016-11-12 20:16] VITALS: BP 187/74; RESP 18
[2016-11-12] MEDS ORDERED: ROPINIROLE 0.25 MG TAB PO SCH (21:00)
[2016-11-12 22:01] VITALS: BP 156/70; PULSE 65
[2016-11-12] MEDS: HYDROCODONE/APAP (5/325) TAB PO PRN (22:01)
[2016-11-13] MEDS: ACCUCHECK AT 2AM (Patients on SS coverage) XX SCH (02:30)
[2016-11-13 04:57] LABS: ADD SCAN DIFF NO
[2016-11-13 05:04] LABS: BASOPHILS % 0.3 % (0.0-2.0); EOSINOPHILS # 0.1 10^3/ul (0.0-0.5); EOSINOPHILS % 1.8 % (0.0-7.0); HEMATOCRIT 23.1 % (37.0-47.0); HEMOGLOBIN 7.6 g/dl (12.0-16.0); LYMPHOCYTES # 3.3 10^3/ul (0.8-2.9); LYMPHOCYTES % 44.8 % (15.0-51.0); MEAN CORPUSCULAR HEMOGLOBIN 25.9 pg (29.0-33.0); MEAN CORPUSCULAR HGB CONC 32.9 g/dl (32.0-37.0); MEAN CORPUSCULAR VOLUME 78.8 fl (82.0-101.0); MEAN PLATELET VOLUME 9.1 fl (7.4-10.4); MONOCYTE # 0.6 10^3/ul (0.3-0.9); MONOCYTES % 8.5 % (0.0-11.0); NEUTROPHIL # 3.2 10^3/ul (1.6-7.5); NEUTROPHILS % 44.2 % (39.0-77.0); PLATELET COUNT 290 10^3/UL (140-415); RED BLOOD COUNT 2.93 10^6/ul (4.20-5.40); RED CELL DISTRIBUTION WIDTH 16.1 % (11.5-14.5); WHITE BLOOD COUNT 7.3 10^3/ul (4.8-10.8)
[2016-11-13] MEDS: PANTOPRAZOLE (EC) 40 MG TAB PO SCH (05:20)
[2016-11-13 05:42] LABS: POTASSIUM 4.3 mmol/L (3.5-5.1)
[2016-11-13 05:44] LABS: CREATININE 1.51 mg/dl (0.44-1.00)
[2016-11-13 05:45] LABS: CALCIUM 8.4 mg/dl (8.4-10.2)
[2016-11-13 05:49] LABS: IRON 72 ug/dl (35-150)
[2016-11-13 05:58] LABS: TOTAL IRON BINDING CAPACITY 296 ug/dl (241-421)
[2016-11-13 08:00] VITALS: BP 176/77; RESP 18
[2016-11-13] MEDS ORDERED: ASPIRIN 81 MG TAB PO SCH (09:00)
[2016-11-13] MEDS: METOPROLOL 50 MG TAB PO SCH (09:08)
[2016-11-13] MEDS: LORATADINE 10 MG TAB PO SCH (09:08)
[2016-11-13] MEDS: OLOPATADINE 0.1% 5 ML OPH LEFT EYE SCH (09:09)
[2016-11-13] MEDS: DOCUSATE SODIUM 100 MG CAP PO PRN (09:09)
[2016-11-13] MEDS: MEGESTROL (40 MG/ML) 10ML CUP PO SCH (09:09)
[2016-11-13] MEDS: Insulin NOVOLOG SS MILD Algorithm (SS with meals and bedtime) SC SCH ×2 (09:12→13:05)
[2016-11-13 11:31] VITALS: BP 159/67
[2016-11-13] MEDS: AMLODIPINE 10 MG TAB PO SCH (11:32)
--- NOTE | 2016-11-13 14:55 | PDOCDIS ---
Discharge Instructions DIAGNOSIS Discharge Diagnosis: anemia, unclear etiology CONDITION Patient Condition: Good HOME CARE INSTRUCTIONS: Diet Instructions: 2gm Na ACTIVITY: Activity Restrictions: No Restrictions FOLLOW UP/APPOINTMENTS Appointments follow up with PCP within 7 days for BP check CHAZ SANCHEZ MD November 13, 2016 14:55
[2016-11-13] MEDS ORDERED: AMLO-147 PO (15:02)
[2016-11-13] MEDS ORDERED: CLON0.2T12 PO (15:03)
[2016-11-13] MEDS ORDERED: METO-429 PO (15:03)
--- NOTE | 2016-11-13 15:05 | DS ---
Date/Time of Note Date/Time of Note DATE: 11/13/16 TIME: 15:04 Discharge Summary Admission/Discharge Info Admit Date/Time November 12, 2016 at 17:24 Discharge Date/Time Final Diagnosis anemia, etiology unclear uncontrolled hypertension chronic renal impairment Patient Condition: Good Consults nephrology Procedures 5.: NCCT head no masses/bleeds, +small vessel disease CXR no infiltrate TTE : stage I DD; mild/mod trace AR trace TR 5.28 NABEEL IMPRESSION: 1. Echogenic, nonobstructing calculi in the left kidney. Hx of Present Illness An 81-year-old female with past medical history based on records of hypertension, high cholesterol, heart murmur, possible stent placement, type 2 diabetes who has been having headache and dizziness for the past 2 days. She also had decreased ambulation as well. The patient is Harley speaking. Most of the information was obtained from the ER documentation, as the patient is presently not able to provide a full HPI. She also had a nonspecific headache over the last 2 days. A full review of systems could not be obtained at this time. When the patient came in today, she had an elevated lactic acid of 3.0 and her creatinine was 1.6, although we do not know her baseline. Also the patient had a hemoglobin of 9.1, although no signs of any upper or lower GI bleeding. Hospital Course Pt's hgb 9 on admission, was in the 7s the next day. Hgb remained 7s-8s during her stay. Iron studies and TSH checked and were normal. Renal consulted for EMPERATRIZ on CKD. Cr 1.4-1.7 duing her stay. UA with 4+ protein, consistent with significant medial renal disease. BPs noted to be significantly elevated reaching 190s-200s systolic. BP regimen uptitrated with new bb, ccb, and increase in clonidine dose. Post discharge follow ups: further anemia eval, possible GI involvement f/u with nephrology BP check with PCP within 7 days Home Meds Active Scripts Clonidine Hcl* (Catapres*) 0.2 Mg Tablet, 0.2 MG PO TID for 42 Days, TAB Prov:CHAZ SANCHEZ MD 11/13/16 Metoprolol Tartrate* (Lopressor*) 50 Mg Tab, 50 MG PO Q12 for 28 Days, TAB Prov:CHAZ SANCHEZ MD 11/13/16 Amlodipine Besylate* (Amlodipine Besylate*) 10 Mg Tablet, 10 MG PO DAILY for 14 Days, TAB Prov:CHAZ SANCHEZ MD 11/13/16 Reported Medications Olopatadine* (Pataday*) 0.2% - 2.5 Ml Drops, 1 DROP LEFT EYE DAILY, EA 11/09/16 Phenazopyridine Hcl* (Pyridium*) 200 Mg Tab, 200 MG PO TID, TAB 11/09/16 Ropinirole Hcl* (Ropinirole Hcl*) 0.25 Mg Tablet, 0.25 MG PO HS, TAB 11/09/16 Cetirizine Hcl* (Zyrtec*) 10 Mg Capsule, 10 MG PO DAILY, TAB 11/09/16 Clopidogrel Bisulfate (Clopidogrel) 75 Mg Tablet, 75 MG PO DAILY, #30 TAB 11/09/16 Aspirin* (Aspirin* Chew) 81 Mg Tab.chew, 81 MG PO DAILY, TAB.CHEW 11/09/16 Sitagliptin Phos/Metformin HCl (Janumet 50-1,000 mg Tablet) 1 Each Tablet, 1 EACH PO BID, TAB 11/09/16 Clonidine Hcl* (Clonidine Hcl*) 0.1 Mg Tab, 0.1 MG PO Q6 Y for ELEVATED BLOOD PRESSURE, TAB 11/09/16 Zolpidem Tartrate* (Ambien*) 5 Mg Tablet, 5 MG PO QHS Y for INSOMNIA, #30 TAB 11/09/16 Ciprofloxacin Hcl* (Ciprofloxacin Hcl*) 500 Mg Tablet, 500 MG PO BID, #14 TAB 11/09/16 Megestrol Acetate* (Megestrol Acetate*) 800 Mg/20 Ml Oral.susp, 800 MG PO DAILY , ML 11/09/16 Discontinued Scripts Oseltamivir Phosphate* (Tamiflu*) 75 Mg Capsule, 75 MG PO BID for 5 Days, CAP Prov:MARY SHEARER MD 08/20/16 Acetaminophen* (Tylophen*) 500 Mg Capsule, 1 CAP PO Q6H Y for PAIN AND OR ELEVATED TEMP, #15 CAP Prov:MARY SHEARER MD 08/20/16 Follow-up Plan PCP within 7 days for BP check, possible renal and GI referrals Primary Care Provider Care Physician No Primary Time spent on discharge: > 30 minutes Pending Labs Laboratory Tests Test 11/12/16 17:27 11/12/16 20:07 11/13/16 02:28 11/13/16 04:45 Bedside Glucose 161mg/dL (70-220) 190mg/dL (70-220) 164mg/dL (70-220) White Blood Count 7.310^3/ul (4.8-10.8) Red Blood Count 2.9310^6/ul (4.20-5.40) Hemoglobin 7.6g/dl (12.0-16.0) Hematocrit 23.1% (37.0-47.0) Mean Corpuscular Volume 78.8fl (82.0-101.0) Mean Corpuscular Hemoglobin 25.9pg (29.0-33.0) Mean Corpuscular Hemoglobin Concent 32.9g/dl (32.0-37.0) Red Cell Distribution Width 16.1% (11.5-14.5) Platelet Count 37213^3/UL (140-415) Mean Platelet Volume 9.1fl (7.4-10.4) Neutrophils % 44.2% (39.0-77.0) Lymphocytes % 44.8% (15.0-51.0) Monocytes % 8.5% (0.0-11.0) Eosinophils % 1.8% (0.0-7.0) Basophils % 0.3% (0.0-2.0) Nucleated Red Blood Cells % 0.0/100WBC (0.0-0.0) Neutrophils # 3.210^3/ul (1.6-7.5) Lymphocytes # 3.310^3/ul (0.8-2.9) Monocytes # 0.610^3/ul (0.3-0.9) Eosinophils # 0.110^3/ul (0.0-0.5) Basophils # 0.010^3/ul (0.0-0.1) Nucleated Red Blood Cells # 0.010^3/ul (0.0-0.0) Sodium Level 142mmol/L (135-144) Potassium Level 4.3mmol/L (3.5-5.1) Chloride Level 116mmol/L (97-110) Carbon Dioxide Level 24mmol/L (21-31) Anion Gap 6 (8-16) Blood Urea Nitrogen 26mg/dl (7-20) Creatinine 1.51mg/dl (0.44-1.00) Glucose Level 149mg/dl (70-220) Calcium Level 8.4mg/dl (8.4-10.2) Iron Level 72ug/dl (35-150) Total Iron Binding Capacity 296ug/dl (241-421) Percent Iron Saturation 24% SAT (22-52) Thyroid Stimulating Hormone (TSH) 1.030MIU/L (0.465-4.680) Test 11/13/16 08:44 11/13/16 13:02 Bedside Glucose 146mg/dL (70-220) 149mg/dL (70-220) CHAZ SANCHEZ MD November 13, 2016 15:05
[2016-11-13 16:04] VITALS: BP 158/68
--- NOTE | 2016-11-14 06:55 | PN ---
DATE: 11/13/2016 SUBJECTIVE: The patient denies any nausea, vomiting. OBJECTIVE: VITAL SIGNS: Blood pressure 150/67. LUNGS: Clear. CARDIOVASCULAR: S1, S2 normal. LABORATORY DATA: BUN 26, creatinine 1.51. IMPRESSION: 1. Hypertension. 2. Chronic kidney disease. PLAN: Continue BP medications. Further workup can be done as an outpatient for nephrology. Dictated By: TEE MATHTEWS/KIRSTEN Conf#: [id number] DID#: [id number]
== END 2016-11-13 16:10 | disposition home or self-care (01) | DRG 684 ==
LOC: E/R 10:59 → MS1 15:53 → OBSVTOIN 11-12 17:24
PROVIDERS: ADMIT Internal Medicine Nephrology; ATTEND Hospitalist
DX: N17.9 Acute kidney failure, unspecified (principal); E11.22 Type 2 diabetes mellitus with diabetic chronic kidney disease; D63.1 Anemia in chronic kidney disease; R51 Headache; E78.00 Pure hypercholesterolemia, unspecified; I12.9 Hypertensive chronic kidney disease with stage 1 through stage 4 chronic kidney disease, or unspecified chronic kidney disease; N18.9 Chronic kidney disease, unspecified
CPT/HCPCS: 36415; 70450; 71010; 76775; 80048; 80053; 80061; 80307; 81001; 81003; 82570; 82962; 83036; 83540; 83605; 83735; 84100; 84155; 84300; 84439; 84443; 84484; 85025; 85610; 85730; 86850; 86900; 86901; 87040; 87086; 89190; 92610; 93005; 93306; 96374; 97162; C9113; G0378; J0360; J1815; J7030